=== PATIENT | female | born 1995 | race Caucasian/White ===

== ENCOUNTER 2022-08-27 01:52 | Emergency (ER) | payer BC, SELFPAY ==
[2022-08-27 02:12] VITALS: BP 115/72; PULSE 108; RESP 18; TEMP 37.4; O2SAT 97; BMI 29.0
--- OUTSIDE RECORDS SUMMARY | 2022-08-27 03:11 | XMS_ITS | Encounter Summary ---
:1995 Author Organization [facility] Address [address] [place] [address] Care Team Providers Name Role Phone Unavailable Primary Care Provider Unavailable Encounter Details Date Type Department Care Team Description 03/10/2016 Hospital Encounter HX [facility] Kyle Munroe M.D. [address] [place] [address] (Wo rk) Social History Tobacco Use Types Packs/Day Years Used Date Smoking Tobacco: Never Assessed Sex Assigned at Date Recorded Not on file documented as of this encounter Plan of Treatment Not on filedocumented as of this encounter Visit Diagnoses Not on filedocumented in this encounter
--- OUTSIDE RECORDS SUMMARY | 2022-08-27 03:11 | XMS_ITS | Encounter Summary ---
:1995 Author Organization [facility] Address [address] [place] [address] Care Team Providers Name Role Phone Unavailable Primary Care Provider Unavailable Encounter Details Date Type Department Care Team Description 03/20/2016 Hospital Encounter HX [facility] OCCUP MED Kyle Munroe M.D. [address] [place] [address] (Wo rk) Social History Tobacco Use Types Packs/Day Years Used Date Smoking Tobacco: Never Assessed Sex Assigned at Date Recorded Not on file documented as of this encounter Miscellaneous Notes Miscellaneous - Dora Loomis, CMaximilianoMMaximilianoAMaximiliano - 03/20/2016 8:30 AM CDT PPD Screen PPD Screen Entered On: 03/20/2016 8:31 CDT Performed On: 03/20/2016 8:30 CDT by DORA LOOMIS [facility] PPD Screening Bloody Sputum : No Fatigue : No Fever : No Loss of Appetite : No Night Sweats : No Persistent Cough Greater Than 3 Weeks : No Weight Loss : No DORA LOOMIS [facility] - 03/20/2016 8:30 CDT TB Symptoms Grid Alcohol and Drug Use : No Employee of Institutional Living Environment : No Health Care Employee : Yes History of Exposure to TB : No History of Positive Chest X-Ray for TB : No History of Positive TB Skin Test : No Homeless : No Known Immunosuppression : No Recent Immigrant : No Resident of Institutional Living Environment : No DORA LOOMIS [facility] - 03/20/2016 8:30 CDT PPD Screening Grid Severe reaction to previous TST (necrosis, blistering, anaphylactic shock, or ulcerations) : No Smallpox vaccine within last 4 - 6 weeks : No Yellow Fever vaccine in last 4 - 6 weeks : No Varicella vaccine within last 4 - 6 weeks : No Measles vaccine within last 4 - 6 weeks : No Any live virus vaccine within last 4 - 6 weeks : No DORA LOOMIS [facility] - 03/20/2016 8:30 CDT Source: [facility] [employer] Document Id: [id number] CDT!28 documented in this encounter Plan of Treatment Not on filedocumented as of this encounter Visit Diagnoses Not on filedocumented in this encounter
--- OUTSIDE RECORDS SUMMARY | 2022-08-27 03:11 | XMS_ITS | Encounter Summary ---
:1995 Author Organization [facility] Address [address] [place] [address] Care Team Providers Name Role Phone Unavailable Primary Care Provider Unavailable Encounter Details Date Type Department Care Team Description 08/24/2021 Admin Visit Department of Family Medicine, [address] [address] [facility] [phone] Social History Tobacco Use Types Packs/Day Years Used Date Smoking Tobacco: Never Assessed Sex Assigned at Date Recorded Not on file documented as of this encounter Plan of Treatment Not on filedocumented as of this encounter Visit Diagnoses Not on filedocumented in this encounter Additional Health Concerns Infection Onset Date Last Indicated Resolved Time COVID19 Pending 08/24/2021 08/24/2021 08/25/2021 10:56 AM COMMUNICATIONS ENGINEERING TECHNICIAN documented as of this encounter
--- OUTSIDE RECORDS SUMMARY | 2022-08-27 03:11 | XMS_ITS | Clinical Summary ---
:1995 Author Organization [facility] Address [address] [place] [address] Care Team Providers Name Role Phone Unavailable Primary Care Provider Unavailable Source Comments Patient records contain information from all sites at [facility]. For routine questions regarding patient records, call [phone] during business hours, M-F 8:00 AM - 5:00 PM Central Time. Record requests for emergency care only can be directed to [phone] at any time.[facility] Immunizations Name Administration Dates Next Due SARS-COV-2 (COVID-19) - MODERNA 11/18/2020 Social History Tobacco Use Types Packs/Day Years Used Date Smoking Tobacco: Never Assessed Sex Assigned at Date Recorded Not on file Plan of Treatment Health Maintenance Due Date Last Done Comments Cervical Cancer Screening 1995 Chlamydia and Gonorrhea 1995 Screening HIV Screening 1995 Hepatitis B Vaccines (1 of 1997 3 - 3-dose series) Hepatitis C Screening 1995 Depression Screening 10/04/2021 (Annual PHQ-2) COVID-19 Vaccine (4 - 10/29/2021 09/03/2021, 12/19/2020, Booster for Moderna series) 11/18/2020 Influenza Vaccine (#1) 2022 06/18/2021 DTaP,Tdap,and Td Vaccines 06/02/2028 06/02/2018, 06/06/2009 , (8 - Td or Tdap) 05/08/2003, Additional history exists HPV Vaccines Completed 10/25/2012, 07/07/2012, 04/22/2012 Pneumococcal vaccine (0-64 Aged Out No lo nger eligible years) based on patient 's age to complete this topic
--- OUTSIDE RECORDS SUMMARY | 2022-08-27 03:11 | XMS_ITS | Encounter Summary ---
:1995 Author Organization [facility] Address [address] [place] [address] Care Team Providers Name Role Phone Unavailable Primary Care Provider Unavailable Reason for Visit Reason Onset Date Comments Testing For Upper Respiratory Virus Symptoms 08/24/2021 Encounter Details Date Type Department Care Team Description 08/24/2021 External Outreach Department of [facility] Memo Araujo Contact With And Medicine, [facility] Michelle Garcia (Suspected) Exposure Building, in [address] To COVID-19 (Primary [place], [place] Dx) [address] [facility] [address] [place], [place] [phone] [address] (Work) [phone] Social History Tobacco Use Types Packs/Day Years Used Date Smoking Tobacco: Never Assessed Sex Assigned at Date Recorded Not on file documented as of this encounter Progress Notes Shazia Maravilla R.N. - 08/24/2021 11:45 AM CST Encounter created for symptomatic infectious disease screening with possible COVID, Influenza, RSV, and/or Group A Strep testing. IER ASSOCIATE documented in this encounter Miscellaneous Notes Result Encounter Note - Felipa Johnson R.N. - 08/25/2021 11:05 AM CARRIER ASSOCIATE The patient will be contacted if they are eligible for Monoclonal Antibody Infusion (MASS 1 or greater) and/or Remote Patient Monitoring (MASS 3 or greater). The [place] Covid Care Team (CCT) sends general guidance about COVID-19 to all patients by letter or portal, except when a patient is hospitalized or resides in a care home. [facility] will call all adult patients at highest risk for severe complications of COVID-19 (MASS 3 or greater), those without an online services account, and those who require an helpdesk administrator. Any patient with a MASS score 1 or greater or a COVID-19 score 1 or greater may be at higher risk ofsevere disease. These patients will follow up directly with primary care. The primary care team willdecide if the patient needs a phone call or a follow up portal message to assess symptom severity, provide individualized guidance on symptom monitoring or symptom management, or to reinforce when to se ek care. [facility] encourages patients to follow up with their PCP with questions, worsening symptoms, or for symptom management. For questions, contact the [place] Covid Care Team ([facility]): Pager: [phone] In basket: P RST/[facility] COVID-19 POSITIVE Covid Care e-consult Components of the Monoclonal Antibody Selection Score (MASS) Compromised Immune System/Transplant = 4 points Chronic Kidney Disease on Dialysis = 4 points Age greater than or equal to 55 and chronic pulmonary disease = 3 points Age greater than or equal to 65 = 2 points Age greater than or equal to = 2 points Diabetes = 2 points Age greater than or equal to 55 AND cardiovascular disease = 2 points Age greater than or equal to 55 and hypertension = 1 point NOTE: At the time of testing, patients are instructed to obtain the result by calling the [employer] result line or by checking the online services account. IER ASSOCIATE documented in this encounter Plan of Treatment Not on filedocumented as of this encounter Procedures Procedure Name Priority Date/Time Associated Diagnosis Comme nts SARS CORONAVIRUS-2 Routine 08/24/2021 2:14 PM Contact With And Results for this RNA, V CARRIER ASSOCIATE (Suspected) Exposure procedu re are in To COVID-19 the results section. documented in this encounter Results (ABNORMAL) SARS Coronavirus-2 RNA, V Symptomatic (08/24/2021 2:14 PM CARRIER ASSOCIATE) [facility] Method Time Signature SARS-CoV-2 Swab, 08/25/2021 MKTO Specimen Nasopharynx 10:55 AM Source CARRIER ASSOCIATE SARS CoV-2 Detected (A) Undetected 08/25/2021 PIETER RNA, TMA 10:55 AM CARRIER ASSOCIATE Comment: SARS-CoV-2 RNA present. ----ADDITIONAL INFORMATION---- This molecular amplification test was pe rformed using the Aptima SARS-CoV-2 assay ([employer] on the [employer]s tem under emergency use authorization (EUA) by the U.S. Food and Drug Administ deena. Fact sheets for this EUA assay can be fo und at the following links: For Healthcare Providers: https://www.fd a.gov/media/444044/download For Patients: https://www.fda.gov/media/ 489778/download Specimen Anatomical Collection Method Collection Time Receive d Time (Source) Location / / Volume Laterality Varies 08/24/2021 2:14 PM (Nasopharynx) CARRIER ASSOCIATE 10:36 PM CARRIER ASSOCIATE Memo Araujo D.O. LAB MICROBIOLOGY - GENERAL O RICKY Performing Organization Address City/State/[facility] Phon e Number [facility]- [address] [place] [address] [place] [address] System [address] documented in this encounter Visit Diagnoses Diagnosis Contact With And (Suspected) Exposure To COVID-19 - Primary documented in this encounter Additional Health Concerns Infection Onset Date Last Indicated Resolved Time COVID19 Pending 08/24/2021 08/24/2021 08/25/2021 10:56 AM CARRIER ASSOCIATE documented as of this encounter
[2022-08-27 03:40] LABS: SARS PCR* Negative SARS-CoV-2 (Negative)
[2022-08-27 03:55] LABS: PCR FLU A POSITIVE PCR FLU A (Negative); PCR FLU B Negative PCR FLU B (Negative); PCR RSV Negative PCR RSV (Negative)
[2022-08-27] MEDS: OSELTAMIVIR PHOSPHATE 75 MG CAPSULE PO (04:40)
--- NOTE | 2022-08-27 19:25 | ED.GENADULT ---
HPI - General Adult General Chief complaint: Cough Stated complaint: covid, cough Time Seen by Provider: 08/27/22 02:17 History of Present Illness HPI narrative: 26-year-old young woman presenting to the emergency department with her elderly with concern of chills headache sore throat. In home test apparently tested positive for COVID. This is 2nd day of symptoms. Is requesting a work note verifying COVID status for work. Works at [employer]? No apparent rash. No particular exposures other than her also has similar symptoms. No vomiting. Not complaining of nausea. Is generally quite healthy without renal problems. Takes no medications other than I believe contraception. Related Data Previous Rx's Medication Instructions Recorded nirmatrelvir 300 mg (150 mg See Rx Instructions PO .COMPLEX 08/27/22 x2)-ritonavir 100 mg tablet,dose #30 ea pack(EUA) (Paxlovid) Allergies Allergy/AdvReac Type Severity Reaction Status Date / Time amoxicillin Allergy Hives Verified 08/27/22 02:16 control patch AdvReac Rash Uncoded 08/27/22 02:16 Review of Systems Status of ROS: Reports: 6 or more systems reviewed and unremarkable except as noted in History and below PFSH PFSH Social History Smoking Status: Never smoker How often do you have a drink containing alcohol: monthly or less AUDIT-C Alcohol total score: 1 Non-prescribed substance use: denies use Exam Narrative: Exam Narrative: Generally well. NAD. Sounds a little congested. Face little flushed. No facial swelling or tenderness apparent Oropharynx is moist Lungs are clear Cardiovascular with elevated rate no MR G. Skin is rather warm, dry. Const: Vital Signs, click to edit/add: Vital Signs - 24 hr 08/27/22 02:12 Temperature 99.3 F Pulse Rate [Pulse Oximeter] 108 H Respiratory Rate 18 Blood Pressure [Le ft Upper Arm] 115/72 Pulse Oximetry 97 Oxygen Delivery Me thod Room Air Documenting provider has reviewed patient's vital signs: yes Course Vital Signs Vital signs: Initial Vital Signs Temperature 99.3 F 08/27/22 02:12 Temperature Source Temporal Artery Scan 08/27/22 02:12 Pulse Rate 108 H 08/27/22 02:12 Respiratory Rate 18 08/27/22 02:12 Blood Pressure 115/72 08/27/22 02:12 Blood Pressure Mean 86 08/27/22 02:12 Blood Pressure Position Sitting 08/27/22 02:12 Pulse Oximetry 97 08/27/22 02:12 Oxygen Delivery Method 08/27/22 02:12 Vital Signs Temperature 99.3 F 08/27/22 02:12 Pulse Rate 108 H 08/27/22 02:12 Respiratory Rate 18 08/27/22 02:12 Blood Pressure 115/72 08/27/22 02:12 Pulse Oximetry 97 08/27/22 02:12 Oxygen Delivery Method 08/27/22 02:12 Temperature 99.3 F 08/27/22 02:12 Pulse Rate 108 H 08/27/22 02:12 Respiratory Rate 18 08/27/22 02:12 Blood Pressure 115/72 08/27/22 02:12 Pulse Oximetry 97 08/27/22 02:12 Oxygen Delivery Method 08/27/22 02:12 Medical Decision Making MDM Narrative Medical decision making narrative: Understanding self-reported positive COVID test and that she has no comorbidities, reviewed record and no evidence of any renal problems, she would like to receive treatment for COVID. I did initially prescribe Paxlovid however we tested as well during this visit and he was negative. Circling back around and screening for influenza A, he was positive. Christy subsequently tested positive for influenza A as well. She would like to receive Tamiflu. Medical Records Medical records reviewed: Yes I reviewed the patient's medical records Lab Data Lab results reviewed: Yes I reviewed the patient's lab results Labs: Lab Results 08/27/22 Range/Units 02:11 SARS-CoV-2 (PCR) Negative SARS-CoV-2 (Negative) Influenza Type A (PCR) POSITIVE PCR FLU A A (Negative) Influenza Type B (PCR) Negative PCR FLU B (Negative) RSV (PCR) Negative PCR RSV (Negative) Discharge Plan Discharge Clinical Impression: Influenza A Condition: Stable Additional Instructions: Our testing was negative for COVID but positive for influenza type A. Stay well-hydrated. Can take up to 800 mg of ibuprofen or up to 1000 mg of acetaminophen per dose. I would try to get you Tamiflu from [facility] but it looks like we're out. Will have to go to pharmacy. Do not take/fill the Paxlovid. Take your other Tamiflu at around 5:00 p.m. <del>Same</del> <del>goes</del> <del>for</del> <del>you,</del> <del>if</del> <del>you</del> <del>becoming</del> <del>more</del> <del>short</del> <del>of</del> <del>air,</del> <del>get</del> <del>an</del> <del>oxygen</del> <del>saturation</del> <del>monitor</del> <del>and</del> <del>return</del> <del>for</del> <del>oxygen</del> <del>saturations</del> <del>that</del> <del>are</del> <del>90%</del> <del>or</del> <del>less.</del> <del>Recommended</del> <del>quarantine</del> <del>for</del> <del>10</del> <del>days</del> <del>from</del> <del>onset</del> <del>of</del> <del>symptoms.</del> Prescriptions: New Paxlovid (EUA) 300 mg (150 mg x 2)-100 mg tablets,dose pack See Rx Instructions .ROUTE .COMPLEX Qty: 30 0RF Rx Instructions: take TWO 150 mg tablets of nirmatrelvir with ONE 100 mg tablet of ritonavir twice daily for 5 days Follow Up/Referrals: Deneen Barrientos MD [Primary Care Provider] - Stand Alone Forms: [facility] Info Instructions
== END 2022-08-27 05:03 | disposition home or self-care (01) ==
PROVIDERS: Emergency Provider Family Medicine; PCP Family Medicine
DX: J09.X2 Influenza due to identified novel influenza A virus with other respiratory manifestations (principal)
CPT/HCPCS: 87502; 87634; 87635; 96374; 99283; 99284; A9270; J2405; J7030

== ENCOUNTER 2022-08-27 17:50 | Outpatient (CLI) | payer BC, SELFPAY | END 2022-08-27 17:51 | disposition home or self-care (01) | LOC: AMB 09-18 05:02 | PROVIDERS: PCP Family Medicine; Visit Provider Family Medicine | DX: R53.1 Weakness (principal) | CPT/HCPCS: A0425; A0427 ==

== ENCOUNTER 2022-08-27 18:15 | Emergency (ER) | payer BC, SELFPAY ==
[2022-08-27] VITALS (17 sets, daily range): BP systolic 116–127; BP diastolic 71–81; PULSE 67–111; RESP 18; TEMP 37.9; O2SAT 95–100; BMI 30.9
--- NOTE | 2022-08-27 18:45 | ED.NURSE ---
Pt visitor called for assistance. Master At Arms entered room. Pt visitor stated pt put her hand up to her head, straightened her legs, and passed out. Pt vitals stable and unchanged. BP repeated, still stable. Pt responsive to voice. Pt visitor reassured by selling underwriter that pt was vitally stable.
--- NOTE | 2022-08-27 19:00 | ED.NURSE ---
Pt's visitor called stating pt threw up in the bed. Music Minister arrived in the room, pt visitor stating pt threw up on the bed and was laying on her side covering the area she had allegedly vomited. Pt able to follow verbal directions to turn and move to expose the area where she said she had vomited. No evidence of any emesis. Pt provided with emesis bag.
--- OUTSIDE RECORDS SUMMARY | 2022-08-27 19:11 | XMS_ITS | Clinical Summary ---
:1995 Author Organization [facility] Address [address] [place] [address] Care Team Providers Name Role Phone Unavailable Primary Care Provider Unavailable Source Comments Patient records contain information from all sites at [facility]. For routine questions regarding patient records, call [phone] during business hours, M-F 8:00 AM - 5:00 PM Central Time. Record requests for emergency care only can be directed to [phone] at any time.[facility] Immunizations Name Administration Dates Next Due SARS-COV-2 [...]
--- OUTSIDE RECORDS SUMMARY | 2022-08-27 19:11 | XMS_ITS | Encounter Summary ---
:1995 Author Organization [facility] Address [address] [place] [address] Care Team Providers Name Role Phone Unavailable Primary Care Provider Unavailable Encounter Details Date Type Department Care Team Description 08/24/2021 Admin Visit Department of Family Medicine, [address] [address] [facility] [phone] Social History Tobacco Use Types Packs/Day Years Used Date Smoking Tobacco: Never Assessed Sex Assigned at Date Recorded Not on file documented as of this encounter Plan of Treatment Not on filedocumented as of this encounter Visit Diagnoses Not on filedocumented in this encounter Additional Health Concerns Infection Onset Date Last Indicated Resolved Time COVID19 Pending 08/24/2021 08/24/2021 08/25/2021 10:56 AM GUIDEMAN documented as of this encounter
--- OUTSIDE RECORDS SUMMARY | 2022-08-27 19:11 | XMS_ITS | Encounter Summary ---
:1995 Author Organization [facility] Address [address] [place] [address] Care Team Providers Name Role Phone Unavailable Primary Care Provider Unavailable Encounter Details Date Type Department Care Team Description 03/10/2016 Hospital Encounter HX [facility] FBCR OCCUP MED Kyle Munroe M.D. [address] [place] [address] (Wo rk) Social History Tobacco Use Types Packs/Day Years Used Date Smoking Tobacco: Never Assessed Sex Assigned at Date Recorded Not on file documented as of this encounter Plan of Treatment Not on filedocumented as of this encounter Visit Diagnoses Not on filedocumented in this encounter
--- OUTSIDE RECORDS SUMMARY | 2022-08-27 19:11 | XMS_ITS | Encounter Summary ---
:1995 Author Organization [facility] Address [address] [place] [address] Care Team Providers Name Role Phone Unavailable Primary Care Provider Unavailable Reason for Visit Reason Onset Date Comments Testing For Upper Respiratory Virus Symptoms 08/24/2021 Encounter Details Date Type Department Care Team Description 08/24/2021 External Outreach Department of [facility] Memo Araujo Contact With And Medicine, [facility] Michelle Garcia (Suspected) Exposure Building, in [address] To COVID-19 (Primary [place], [place] Dx) [address] [facility] [address] [place], [place] [phone] [address] (Work) [phone] Social History Tobacco Use Types Packs/Day Years Used Date Smoking Tobacco: Never Assessed Sex Assigned at Date Recorded Not on file documented as of this encounter Progress Notes Shazia Maravilla R.N. - 08/24/2021 11:45 AM CST Encounter created for symptomatic infectious disease screening with possible COVID, Influenza, RSV, and/or Group A Strep testing. COURT JUSTICE documented in this encounter Miscellaneous Notes Result Encounter Note - Felipa Johnson R.N. - 08/25/2021 11:[address] JUSTICE The patient will be contacted if they are eligible for Monoclonal Antibody Infusion (MASS 1 or greater) and/or Remote Patient Monitoring (MASS 3 or greater). The [place] Covid Care Team (CCT) sends general guidance about COVID-19 to all patients by letter or portal, except when a patient is hospitalized or resides in a mcfp. [facility] will call all adult patients at highest risk for severe complications of COVID-19 (MASS 3 or greater), those without an online services account, and those who require an senior program manager. Any patient with a MASS score 1 [...] for symptom management. For questions, contact the [place] Covid Care Team ([facility]): Pager: [phone] In basket: P RST/[facility] COVID-19 POSITIVE Covid [...] to obtain the result by calling the [employer] result line or by checking the online services account. COURT JUSTICE documented in this encounter Plan of Treatment Not on filedocumented as of this encounter Procedures Procedure Name Priority Date/Time Associated Diagnosis Comme nts SARS CORONAVIRUS-2 Routine 08/24/2021 2:14 PM Contact With And Results for this RNA, V HIGH COURT JUSTICE (Suspected) Exposure procedu re are in To COVID-19 the results section. documented in this encounter Results (ABNORMAL) SARS Coronavirus-2 RNA, V Symptomatic (08/24/2021 2:[address] JUSTICE) [facility] Method Time Signature SARS-CoV-2 Swab, 08/25/2021 MKTO Specimen Nasopharynx 10:[address] JUSTICE SARS CoV-2 Detected (A) Undetected 08/25/2021 PIETER RNA, TMA 10:[address] JUSTICE Comment: SARS-CoV-2 RNA present. ----ADDITIONAL INFORMATION---- This molecular amplification test was pe rformed using the Aptima SARS-CoV-2 assay ([employer] on the [employer] tem under emergency use authorization (EUA) by the U.S. Food and Drug Administ deena. Fact sheets for this EUA assay can be fo und at the following links: For Healthcare Providers: https://www.fd a.gov/media/388984/download For Patients: https://www.fda.gov/media/ 180591/download Specimen Anatomical Collection Method Collection Time Receive d Time (Source) Location / / Volume Laterality Varies 08/24/2021 2:14 PM (Nasopharynx) HIGH COURT JUSTICE 10:[address] JUSTICE Memo Araujo D.O. LAB MICROBIOLOGY - GENERAL O RICKY Performing Organization Address City/State/[facility] Phon e Number [facility]- [address] [place] [address] [place] [address] System [address] documented in this encounter Visit Diagnoses Diagnosis Contact With And (Suspected) Exposure To COVID-19 - Primary documented in this encounter Additional Health Concerns Infection Onset Date Last Indicated Resolved Time COVID19 Pending 08/24/2021 08/24/2021 08/25/2021 10:[address] JUSTICE documented as of this encounter
--- OUTSIDE RECORDS SUMMARY | 2022-08-27 19:11 | XMS_ITS | Encounter Summary ---
:1995 Author Organization [facility] Address [address] [place] [address] Care Team Providers Name Role Phone Unavailable Primary Care Provider Unavailable Encounter Details Date Type Department Care Team Description 03/20/2016 Hospital Encounter HX [facility] FBCR OCCUP MED Kyle Munroe M.D. [address] [place] [address] (Wo rk) Social History Tobacco Use Types Packs/Day Years Used Date Smoking Tobacco: Never Assessed Sex Assigned at Date Recorded Not on file documented as of this encounter Miscellaneous Notes Miscellaneous - Dora Loomis, CMaximilianoMMaximilianoAMaximiliano - 03/20/2016 8:30 AM CDT PPD Screen PPD Screen Entered On: 03/20/2016 8:31 CDT Performed On: 03/20/2016 8:30 CDT by DORA LOOMIS [facility] PPD Screening Bloody Sputum : No Fatigue : No Fever : No Loss of Appetite : No Night Sweats : No Persistent Cough Greater Than 3 Weeks : No Weight Loss : No DORA LOOMIS [facility] - 03/20/2016 8:30 CDT TB [...] Institutional Living Environment : No DORA LOOMIS [facility] - 03/20/2016 8:30 CDT PPD [...] - 6 weeks : No DORA LOOMIS [facility] - 03/20/2016 8:30 CDT Source: [facility] [employer] Document Id: [id number] CDT!28 documented in this encounter Plan of Treatment Not on filedocumented as of this encounter Visit Diagnoses Not on filedocumented in this encounter
--- NOTE | 2022-08-27 19:19 | ED.GENADULT ---
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 Was initiated on Tamiflu and subsequently has been vomiting. She says she is just too weak to even walk. Requested ambulance transport to the emergency department. No complaint of chest pain or shortness of breath. Just feeling really miserable. Says she can not talk either. Related Data Previous Rx's Medication Instructions Recorded nirmatrelvir 300 mg (150 mg See Rx Instructions PO .COMPLEX 08/27/22 x2)-ritonavir 100 mg tablet,dose #30 ea pack(EUA) (Paxlovid) Allergies Allergy/AdvReac Type Severity Reaction Status Date / Time amoxicillin Allergy Hives Verified 08/27/22 02:16 control patch AdvReac Rash Uncoded 08/27/22 02:16 Review of Systems Status of ROS: Reports: 6 or more systems reviewed and unremarkable except as noted in History and below PFSH PFS Social History Smoking Status: Never smoker How often do you have a drink containing alcohol: monthly or less AUDIT-C Alcohol total score: 1 Non-prescribed substance use: denies use Exam Narrative: Exam Narrative: Arrives with her . Looks quite disheveled curled up on her right side. Looks like she feels very uncomfortable. Ice to be prompted to bring her head out of the bed. Is able to speak but sounds tired worn out. Cranial nerves 2-12 look to be intact. She is able to move all extremities with good strength. But seems to struggle to sit up. Breathing easily and lungs are clear. Cardiovascular with regular rate and rhythm. Oropharynx is a little sticky Abdomen is soft nontender Const: Vital Signs, click to edit/add: Vital Signs - 24 hr 08/27/22 18:22 08/27/22 19:00 08/27/22 19:02 Temperature 100.3 F H Pulse Rate 98 77 Pulse Rate [Right Pulse Oximeter] 83 Respiratory Rate 18 Blood Pressure 125/80 Blood Pressure [Ri ght Upper Arm] 127/81 Pulse Oximetry 96 98 95 Oxygen Delivery Me thod Room Air 08/27/22 19:03 08/27/22 19:35 08/27/22 20:00 Temperature Pulse Rate 111 H 74 105 H Pulse Rate [Right Pulse Oximeter] Respiratory Rate Blood Pressure Blood Pressure [Ri ght Upper Arm] Pulse Oximetry 95 95 100 Oxygen Delivery Me thod 08/27/22 20:02 08/27/22 20:30 08/27/22 21:00 Temperature Pulse Rate 89 91 67 Pulse Rate [Right Pulse Oximeter] Respiratory Rate Blood Pressure 116/74 Blood Pressure [Ri ght Upper Arm] Pulse Oximetry 98 95 97 Oxygen Delivery Me thod 08/27/22 21:02 08/27/22 21:03 08/27/22 21:30 Temperature Pulse Rate 87 68 71 Pulse Rate [Right Pulse Oximeter] Respiratory Rate Blood Pressure 117/75 Blood Pressure [Ri ght Upper Arm] Pulse Oximetry 96 96 97 Oxygen Delivery Me thod 08/27/22 22:00 08/27/22 22:02 08/27/22 22:30 Temperature Pulse Rate 89 75 70 Pulse Rate [Right Pulse Oximeter] Respiratory Rate Blood Pressure 121/71 Blood Pressure [Ri ght Upper Arm] Pulse Oximetry 98 97 95 Oxygen Delivery Me thod 08/27/22 23:00 08/27/22 23:02 Temperature Pulse Rate 76 74 Pulse Rate [Right Pulse Oximeter] Respiratory Rate Blood Pressure 118/71 Blood Pressure [Ri ght Upper Arm] Pulse Oximetry 96 97 Oxygen Delivery Me thod Documenting provider has reviewed patient's vital signs: yes Course Vital Signs Vital signs: Initial Vital Signs Temperature 100.3 F H 08/27/22 18:22 Temperature Source Temporal Artery Scan 08/27/22 18:22 Pulse Rate 83 08/27/22 18:22 Respiratory Rate 18 08/27/22 18:22 Blood Pressure 127/81 08/27/22 18:22 Blood Pressure Mean 96 08/27/22 18:22 Blood Pressure Position Sitting 08/27/22 18:22 Pulse Oximetry 96 08/27/22 18:22 Oxygen Delivery Method 08/27/22 18:22 Vital Signs Temperature 100.3 F H 08/27/22 18:22 Pulse Rate 83 08/27/22 18:22 Respiratory Rate 18 08/27/22 18:22 Blood Pressure 127/81 08/27/22 18:22 Pulse Oximetry 96 08/27/22 18:22 Oxygen Delivery Method 08/27/22 18:22 Temperature 100.3 F H 08/27/22 18:22 Pulse Rate 74 08/27/22 23:02 Respiratory Rate 18 08/27/22 18:22 Blood Pressure 118/71 08/27/22 23:02 Pulse Oximetry 97 08/27/22 23:02 Oxygen Delivery Method 08/27/22 18:22 Medical Decision Making MDM Narrative Medical decision making narrative: I discussed options and care. I would suspect just more extreme reaction to Tamiflu. At this point does not appear to have any respiratory compromise from influenza. She would like to proceed with IV fluids. Will be also ordering Zofran and re-evaluate. After hydration and Zofran is feeling much improved. Still seems rather fatigued. But did did report feeling ?100% better? and was requesting departure. Discharge Plan Discharge Clinical Impression: Medication reaction, Altered mental status, Vomiting Patient Disposition: Home w/ Parent or Adult Condition: Improved Additional Instructions: Focus on hydration. Slow advance of diet over the next 24-36 hours. Soup broth and diluted juices. Rice. [place]. I think it is possible that Tamiflu is been causing your vomiting. I would discontinue that. Zofran from [facility]. Prescriptions: No Action Paxlovid (EUA) 300 mg (150 mg x 2)-100 mg tablets,dose pack See Rx Instructions .ROUTE .COMPLEX Qty: 30 0RF Rx Instructions: take TWO 150 mg tablets of nirmatrelvir with ONE 100 mg tablet of ritonavir twice daily for 5 days Follow Up/Referrals: Deneen Barrientos MD [Primary Care Provider] - Stand Alone [facility]
[2022-08-27] MEDS: 0.9 % SODIUM CHLORIDE 1000 ml 1,000 ML IV (19:30)
[2022-08-27] MEDS: ONDANSETRON 2 MG/ML inj 4 MG IVP (19:30)
== END 2022-08-27 23:35 | disposition home or self-care (01) ==
PROVIDERS: Emergency Provider Family Medicine; PCP Family Medicine
DX: R11.10 Vomiting, unspecified (principal); R41.82 Altered mental status, unspecified; T37.5X5A Adverse effect of antiviral drugs, initial encounter; J10.1 Influenza due to other identified influenza virus with other respiratory manifestations
CPT/HCPCS: 99284; J2405; J7030

== ENCOUNTER 2022-08-28 15:58 | Inpatient (IN) | payer BC, SELFPAY ==
[2022-08-28 16:53] VITALS: BP 125/83; PULSE 71; RESP 22; TEMP 38.8; O2SAT 99; BMI 27.3
--- OUTSIDE RECORDS SUMMARY | 2022-08-28 17:24 | XMS_ITS | Encounter Summary ---
:1995 Author Organization [facility] Address [address] [place] [address] Care Team Providers Name Role Phone Unavailable Primary Care Provider Unavailable Reason for Visit Reason Onset Date Comments Testing For Upper Respiratory Virus Symptoms 08/24/2021 Encounter Details Date Type Department Care Team Description 08/24/2021 External Outreach Department of [facility] Memo Araujo Contact With And Medicine, [facility] Michelle Garcia (Suspected) Exposure Building, in [address] COVID-19 (Primary [place], [place] Dx) [address] [facility] [address] [place], [place] [phone] [address] (Work) [phone] Social History Tobacco Use Types Packs/Day Years Used Date Smoking Tobacco: Never Assessed Sex Assigned at Date Recorded Not on file documented as of this encounter Progress Notes Shazia Maravilla R.N. - 08/24/2021 11:45 AM CST Encounter created for symptomatic infectious disease screening with possible COVID, Influenza, RSV, and/or Group A Strep testing. TREATMENT OFFSIDER documented in this encounter Miscellaneous Notes Result Encounter Note - Felipa Johnson R.N. - 08/25/2021 11:05 AM WELL TREATMENT OFFSIDER The patient will be contacted if they are eligible for Monoclonal Antibody Infusion (MASS 1 or greater) and/or Remote Patient Monitoring (MASS 3 or greater). The [facility] Team (CCT) sends general guidance about COVID-19 to all patients by letter or portal, except when a patient is hospitalized or resides in a senior living. [facility] will call all adult patients at highest risk for severe complications of COVID-19 (MASS 3 or greater), those without an online services account, and those who require an director of enrollment. Any patient with a MASS score 1 [...] for symptom management. For questions, contact the [facility] Team ([facility]): Pager: [phone] In basket: P RST/[facility] COVID-19 POSITIVE Covid [...] to obtain the result by calling the [employer] result line or by checking the online services account. TREATMENT OFFSIDER documented in this encounter Plan of Treatment Not on filedocumented as of this encounter Procedures Procedure Name Priority Date/Time Associated Diagnosis Comme nts SARS CORONAVIRUS-2 Routine 08/24/2021 2:14 PM Contact With And Results for this RNA, V WELL TREATMENT OFFSIDER (Suspected) Exposure procedu re are in To COVID-19 the results section. documented in this encounter Results (ABNORMAL) SARS Coronavirus-2 RNA, V Symptomatic (08/24/2021 2:14 PM WELL TREATMENT OFFSIDER) [facility] Method Time Signature SARS-CoV-2 Swab, 08/25/2021 MKTO Specimen Nasopharynx 10:55 AM Source WELL TREATMENT OFFSIDER SARS CoV-2 Detected (A) Undetected 08/25/2021 PIETER RNA, TMA 10:55 AM WELL TREATMENT OFFSIDER Comment: SARS-CoV-2 RNA present. ----ADDITIONAL INFORMATION---- This molecular amplification test was pe rformed using the Aptima SARS-CoV-2 assay ([employer] on the [employer] tem under emergency use authorization (EUA) by the U.S. Food and Drug Administ deena. Fact sheets for this EUA assay can be fo und at the following links: For Healthcare Providers: https://www.fd a.gov/media/913127/download For Patients: https://www.fda.gov/media/ 071507/download Specimen Anatomical Collection Method Collection Time Receive d Time (Source) Location / / Volume Laterality Varies 08/24/2021 2:14 PM (Nasopharynx) WELL TREATMENT OFFSIDER 10:36 PM WELL TREATMENT OFFSIDER Memo Araujo D.O. LAB MICROBIOLOGY - GENERAL O RICKY Performing Organization Address City/State/[facility] Phon e Number [facility]- [address] [place] [address] [place] [address] System [address] documented in this encounter Visit Diagnoses Diagnosis Contact With And (Suspected) Exposure To COVID-19 - Primary documented in this encounter Additional Health Concerns Infection Onset Date Last Indicated Resolved Time COVID19 Pending 08/24/2021 08/24/2021 08/25/2021 10:56 AM WELL TREATMENT OFFSIDER documented as of this encounter
--- OUTSIDE RECORDS SUMMARY | 2022-08-28 17:24 | XMS_ITS | Clinical Summary ---
:1995 Author Organization [facility] Address [address] [place] [address] Care Team Providers Name Role Phone Unavailable Primary Care Provider Unavailable Source Comments Patient records contain information from all sites at [facility]. For routine questions regarding patient records, call [phone] during business hours, M-F 8:00 AM - 5:00 PM Central Time. Record requests for emergency care only can be directed to [phone] at any time.[facility] Immunizations Name Administration Dates Next Due [...]
--- OUTSIDE RECORDS SUMMARY | 2022-08-28 17:24 | XMS_ITS | Encounter Summary ---
:1995 Author Organization [facility] Address [address] [place] [address] Care Team Providers Name Role Phone Unavailable Primary Care Provider Unavailable Encounter Details Date Type Department Care Team Description 03/20/2016 Hospital Encounter HX [facility] OCCUP MED Kyle Munroe M.D. [address] [place] [address] (Wo rk) Social History Tobacco Use Types Packs/Day Years Used Date Smoking Tobacco: Never Assessed Sex Assigned at Date Recorded Not on file documented as of this encounter Miscellaneous Notes Miscellaneous - Dora Loomis, CMaximilianoMMaximilianoAMaximiliano - 03/20/2016 8:30 AM CDT PPD Screen PPD Screen Entered On: 03/20/2016 8:31 CDT Performed On: 03/20/2016 8:30 CDT by [facility] LO[facility] PPD Screening Bloody Sputum : No Fatigue : No Fever : No Loss of Appetite : No Night Sweats : No Persistent Cough Greater Than 3 Weeks : No Weight Loss : No [facility] LO[facility] - 03/20/2016 8:30 CDT TB Symptoms Grid [...] Institutional Living Environment : No [facility] LO[facility] - 03/20/2016 8:30 CDT PPD Screening Grid [...] - 6 weeks : No [facility] LOOM[facility] - 03/20/2016 8:30 CDT Source: [facility] [employer] Document Id: [id number] documented in this encounter Plan of Treatment Not on filedocumented as of this encounter Visit Diagnoses Not on filedocumented in this encounter
--- OUTSIDE RECORDS SUMMARY | 2022-08-28 17:24 | XMS_ITS | Encounter Summary ---
:[address] [facility] Address [address] [place] [address] Care Team Providers Name Role Phone Unavailable Primary Care Provider Unavailable Encounter Details Date Type Department Care Team Description 03/10/2016 Hospital Encounter HX [facility] OCCUP MED Kyle Munroe M.D. [address] [place] [address] (Wo rk) Social History Tobacco Use Types Packs/Day Years Used Date Smoking Tobacco: Never Assessed Sex Assigned at Date Recorded Not on file documented as of this encounter Plan of Treatment Not on filedocumented as of this encounter Visit Diagnoses Not on filedocumented in this encounter
--- OUTSIDE RECORDS SUMMARY | 2022-08-28 17:24 | XMS_ITS | Encounter Summary ---
:1995 Author Organization [facility] Address [address] [place] [address] Care Team Providers Name Role Phone Unavailable Primary Care Provider Unavailable Encounter Details Date Type Department Care Team Description 08/24/2021 Admin Visit Department of Family Medicine, [address] [address] [facility] [phone] Social History Tobacco Use Types Packs/Day Years Used Date Smoking Tobacco: Never Assessed Sex Assigned at Date Recorded Not on file documented as of this encounter Plan of Treatment Not on filedocumented as of this encounter Visit Diagnoses Not on filedocumented in this encounter Additional Health Concerns Infection Onset Date Last Indicated Resolved Time COVID19 Pending 08/24/2021 08/24/2021 08/25/2021 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
[2022-08-28] MEDS: ONDANSETRON 2 MG/ML inj 4 MG IVP (18:04)
[2022-08-28] MEDS: KETOROLAC 30 MG/ML inj IVP (18:04)
[2022-08-28] MEDS: 0.9 % SODIUM CHLORIDE 1000 ml 1,000 ML IV (18:04)
[2022-08-28 18:08] LABS: Lactate* 1.1 mmol/L (0.5-1.9)
[2022-08-28 18:10] LABS: Basophils Percent Auto 0.2 % (0.0-3.0); Hematocrit 44.3 % (33.0-51.0); Hemoglobin* 14.5 gm/dL (12.0-16.0); Immature Granulocytes Pct Auto 0.1 %; Lymphocytes Percent Auto 12.4 % (20-44); Mean Corpuscular HGB Conc 33 gm/dL (32-36); Mean Corpuscular Hemoglobin 27 pg (26-34); Mean Corpuscular Volume 82 fL (80-100); Monocytes Percent Auto 4.6 % (0.0-11.0); Neutrophils Percent Auto 82.7 % (42.0-72.0); Platelet Count* 387 K/uL (140-440); RDW Coefficient of Variation % 13.7 % (11.5-15.5); Red Blood Count 5.41 m/uL (4.00-5.20); White Blood Count* 11.84 K/uL (4.50-11.00)
[2022-08-28 18:13] LABS: Slide Review Reflex No
[2022-08-28 18:23] LABS: Chloride* 107 mmol/L (96-114); Potassium* 3.6 mmol/L (3.6-5.1); Sodium* 141 mmol/L (135-149)
[2022-08-28 18:26] LABS: Carbon Dioxide* 23 mmol/L (20-32); Creatinine* 0.8 mg/dL (0.5-1.5); Est. Creatinine Clearance* 113.32; Estimated Glomerular Filt Rate 105 ml/min
[2022-08-28 18:27] LABS: Blood Urea Nitrogen* 14 mg/dL (5-24); Calcium* 8.9 mg/dL (8.4-10.6); Glucose* 88 mg/dL (60-115)
[2022-08-28 18:29] LABS: C Reactive Protein* 0.8 mg/dL (0.5-1.0)
--- NOTE | 2022-08-28 18:30 | ED_ITS ---
HPI - Weakness General Date Seen: 08/28/22 Chief complaint: Weakness Stated complaint: Influenza+, Weak, Possible confusion Time Seen by Provider: 08/28/22 17:04 Source: patient Mode of arrival: ambulatory Limitations: no limitations History of Present Illness HPI Narrative: Patient is a 26-year-old female who has tested positive for influenza, brought in by her significant other for evaluation of fever, and mental status changes. She seems very weak and confused at times. They last gave her Tylenol approximately 10:00 a.m.. She has also been vomiting and vomited in waiting room. She was trialed on Tamiflu but the Tamiflu according to them was thought to be possibly contributing to her mental status changes. She denies any headache, any neck stiffness, she is eating less, and drink and really not all. She has had no incontinence of stool or urine. Denies any abdominal pain, rashes associated with this. She presents here with her , who does the majority of talking. She does seem photophobic in the room. MD Complaint: generalized weakness and lack of energy Onset (ago): day(s) Location: generalized Migration: none Relieving factors: none Exacerbating factors: none Associated symptoms: nausea/vomiting Related Data Home Medications Medication Instructions Recorded Confirmed No Known Home Medications 08/28/22 08/28/22 Allergies Allergy/AdvReac Type Severity Reaction Status Date / Time amoxicillin Allergy Hives Verified 08/27/22 02:16 control patch AdvReac Rash Uncoded 08/27/22 02:16 Review of Systems Status of ROS: Reports: 10 or more systems reviewed and unremarkable except as noted in History and below PFSH PFSH Social History Smoking Status: Never smoker How often do you have a drink containing alcohol: monthly or less AUDIT-C Alcohol total score: 1 Non-prescribed substance use: denies use Exam Narrative: Exam Narrative: I find her resting in room 7, she is laying on her right side, her 's with her, the room is dark, but she tolerates a lytes, with squinting her eyes. She response to my questions and follows commands, is able to sit up on her own, and does answer my questions appropriately. Her pupils are equal round reactive to light, there is no scleral icterus redness TMs are normal, oropharynx is little dry, but no lymphadenopathy in mouth opening normal, neck is supple, full range of motion with absence of meningismus is noted. Fundi appear normal bilaterally, cranial nerves 3-12 are normal, chest is clear, no signs of respiratory distress, heart sounds are normal, abdomen is soft, bowel sounds are normal. Extremities are all normal, normal cap refill, moves all extremities independently well, no posturing. Const: Vital Signs, click to edit/add: Vital Signs - 24 hr 08/28/22 16:53 Temperature 101.9 F H Pulse Rate [Left P ulse Oximeter] 71 Respiratory Rate 22 Blood Pressure [Le ft Upper Arm] 125/83 Pulse Oximetry 99 Oxygen Delivery Me thod Room Air Documenting provider has reviewed patient's vital signs: yes Course Reevaluation(s) Reevaluation #1: Patient's labs are reviewed, her procalcitonin, lactic acid, are normal, white count is slightly elevated, and she was dry on when I review her urinalysis. I will give her 2 L of fluid, she did vomit up once here, and I think she would benefit from staying overnight and IV fluids. I do not think there is an invasive bacterial infection given what I see, I think this is all part and pa rcel with influenza. Do not think she has meningitis nor do I think she has encephalitis. I spoke to the hospitalist and she agreed for admission. Time: 19:37 Vital Signs Vital signs: Initial Vital Signs Temperature 101.9 F H 08/28/22 16:53 Temperature Source Temporal Artery Scan 08/28/22 16:53 Pulse Rate 71 08/28/22 16:53 Pulse Rhythm 08/28/22 16:53 Respiratory Rate 22 08/28/22 16:53 Blood Pressure 125/83 08/28/22 16:53 Blood Pressure Mean 97 08/28/22 16:53 Blood Pressure Position Sitting 08/28/22 16:53 Pulse Oximetry 99 08/28/22 16:53 Oxygen Delivery Method 08/28/22 16:53 Vital Signs Temperature 101.9 F H 08/28/22 16:53 Pulse Rate 71 08/28/22 16:53 Respiratory Rate 22 08/28/22 16:53 Blood Pressure 125/83 08/28/22 16:53 Pulse Oximetry 99 08/28/22 16:53 Oxygen Delivery Method 08/28/22 16:53 Temperature 101.9 F H 08/28/22 16:53 Pulse Rate 71 08/28/22 16:53 Respiratory Rate 22 08/28/22 16:53 Blood Pressure 125/83 08/28/22 16:53 Pulse Oximetry 99 08/28/22 16:53 Oxygen Delivery Method 08/28/22 16:53 MDM - Weakness MDM Narrative Medical decision making narrative: s Life-threatening differential diagnosis is include meningitis, encephalitis, pneumonia, intra-abdominal infection, bacteremia, other differential diagnosis include but are not limited to viral upper respiratory tract infection, strep, urinary tract infection, skin infection, osteomyelitis, influenza, fungal infections, diskitis, epidural abscess, or fever of unknown origin. Medical Records Attestation: I reviewed the patient's medical records. Lab Data Attestation: I reviewed the patient's lab results. Labs: Lab Results 08/28/22 08/28/22 08/28/22 Range/Units 18:00 18:00 18:00 WBC 11.84 H (4.50-11.00) K/uL RBC 5.41 H (4.00-5.20) m/uL Hgb 14.5 (12.0-16.0) gm/dL Hct 44.3 (33.0-51.0) % MCV 82 (80-100) fL MCH 27 (26-34) pg MCHC 33 (32-36) gm/dL RDW Coeff of Joe 13.7 (11.5-15.5) % Plt Count 387 (140-440) K/uL Neut % (Auto) 82.7 H (42.0-72.0) % Lymph % (Auto) 12.4 L (20-44) % [place] % (Auto) 4.6 (0.0-11.0) % Eos % (Auto) 0.0 (0.0-7.0) % Baso % (Auto) 0.2 (0.0-3.0) % Neut # (Auto) 9.80 H (1.7-7.0) K/uL Lymph # (Auto) 1.50 (0.90-2.90) K/uL [place] # (Auto) 0.50 (0.00-0.90) K/UL Eos # (Auto) 0.00 (0.00-0.50) K/uL Baso # (Auto) 0.00 (0.00-0.30) K/uL Abs Immat Gran (auto) 0.00 (0.00-0.30) K/uL Imm/Tot Granulo (auto) 0.1 % Sodium 141 (135-149) mmol/L Potassium 3.6 (3.6-5.1) mmol/L Chloride 107 (96-114) mmol/L Carbon Dioxide 23 (20-32) mmol/L BUN 14 (5-24) mg/dL Creatinine 0.8 (0.5-1.5) mg/dL Estimated Creat Clear 113.32 Estimated GFR 105 ml/min Glucose 88 (60-115) mg/dL Lactate 1.1 (0.5-1.9) mmol/L Calcium 8.9 (8.4-10.6) mg/dL C-Reactive Protein 0.8 (0.5-1.0) mg/dL Procalcitonin 0.07 (<0.50) ng/mL HCG, Qual (Negative) Urine Color (Yellow) Urine Appearance (Clear) Urine pH (5.0-8.5) Ur Specific [place] (1.000-1.030) Urine Protein (Negative) Urine Glucose (UA) (Negative) Urine Ketones (Negative) Urine Blood (Negative) Urine Nitrite (Negative) Urine Bilirubin (Negative) Urine Urobilinogen (0.2-1.0) Ur Leukocyte Esterase (Negative) Urine RBC (0-2) Urine WBC (0-5) Ur Squamous Epith Cells (None-Few) Amorphous Sediment (None) Urine Bacteria (None) Urine Opiates Screen (Negative) Ur Oxycodone Screen (Negative) Urine Methadone Screen (Negative) Ur Propoxyphene Screen (Negative) Ur Barbiturates Screen (Negative) U Tricyclic Antidepress (Negative) Ur Phencyclidine Scrn (Negative) Ur Amphetamines Screen (Negative) U Methamphetamines Scrn (Negative) U Benzodiazepines Scrn (Negative) Urine Cocaine Screen (Negative) U Marijuana (THC) Screen (Negative) Ur Drug Screen Comment Ethyl Alcohol < 0.01 L (0.01-0.03) % 08/28/22 08/28/22 Range/Units 18:45 18:45 WBC (4.50-11.00) K/uL RBC (4.00-5.20) m/uL Hgb (12.0-16.0) gm/dL Hct (33.0-51.0) % MCV (80-100) fL MCH (26-34) pg MCHC (32-36) gm/dL RDW Coeff of Joe (11.5-15.5) % Plt Count (140-440) K/uL Neut % (Auto) (42.0-72.0) % Lymph % (Auto) (20-44) % [place] % (Auto) (0.0-11.0) % Eos % (Auto) (0.0-7.0) % Baso % (Auto) (0.0-3.0) % Neut # (Auto) (1.7-7.0) K/uL Lymph # (Auto) (0.90-2.90) K/uL [place] # (Auto) (0.00-0.90) K/UL Eos # (Auto) (0.00-0.50) K/uL Baso # (Auto) (0.00-0.30) K/uL Abs Immat Gran (auto) (0.00-0.30) K/uL Imm/Tot Granulo (auto) % Sodium (135-149) mmol/L Potassium (3.6-5.1) mmol/L Chloride (96-114) mmol/L Carbon Dioxide (20-32) mmol/L BUN (5-24) mg/dL Creatinine (0.5-1.5) mg/dL Estimated Creat Clear Estimated GFR ml/min Glucose (60-115) mg/dL Lactate (0.5-1.9) mmol/L Calcium (8.4-10.6) mg/dL C-Reactive Protein (0.5-1.0) mg/dL Procalcitonin (<0.50) ng/mL HCG, Qual Negative (Negative) Urine Color Yellow (Yellow) Urine Appearance Turbid A (Clear) Urine pH 5.5 (5.0-8.5) Ur Specific [place] >= 1.030 (1.000-1.030) Urine Protein 1+ A (Negative) Urine Glucose (UA) Negative (Negative) Urine Ketones 3+ A (Negative) Urine Blood Negative (Negative) Urine Nitrite Negative (Negative) Urine Bilirubin 1+ A (Negative) Urine Urobilinogen 0.2 (0.2-1.0) Ur Leukocyte Esterase Trace A (Negative) Urine RBC 0-2 (0-2) Urine WBC 2-5 (0-5) Ur Squamous Epith Cells Few (None-Few) Amorphous Sediment Few A (None) Urine Bacteria Moderate A (None) Urine Opiates Screen Negative (Negative) Ur Oxycodone Screen Negative (Negative) Urine Methadone Screen Negative (Negative) Ur Propoxyphene Screen Negative (Negative) Ur Barbiturates Screen Negative (Negative) U Tricyclic Antidepress Negative (Negative) Ur Phencyclidine Scrn Negative (Negative) Ur Amphetamines Screen Negative (Negative) U Methamphetamines Scrn Negative (Negative) U Benzodiazepines Scrn Negative (Negative) Urine Cocaine Screen Negative (Negative) U Marijuana (THC) Screen POSITIVE A* (Negative) Ur Drug Screen Comment See Note Ethyl Alcohol (0.01-0.03) % Imaging Data Chest x-ray: Attestation: I have reviewed the pertinent imaging results. My impression: No focal pneumonia some centralized bronchial prominence. Radiologist's impression: atient: [facility] Facility:?[facility] Patient ID:?[id number] Site Patient ID:?[id number]. Site :?[id number] Study:?XRay Chest PCXR-08/28/2022 7:01:18 PM Ordering Physician:Elan Adan Final Report: Indication: Fever. Technique: Chest 1 view. Comparison: None. Findings/Impression: Cardiovascular and mediastinum: Heart size and vasculature are normal in caliber and appearance. Lungs and pleural space: Central interstitial infiltrates are present and typical of a viral infectious process or bronchitis. Remainder of the lungs and pleural spaces are clear. Bones and soft tissues: No acute findings. Dictated by Jasbir Stokes MD @ 08/28/2022 7:19:50 PM (Electronic Signature) Discharge Plan Discharge Clinical Impression: Influenza A, Vomiting, Dehydration Patient Disposition: Admitted As Inpatient
[2022-08-28 18:35] LABS: Ethanol* < 0.01 % (0.01-0.03)
--- NOTE | 2022-08-28 18:43 | CRLHL7_ITS ---
For Patients: As a result of the Cures Act, medical imaging exams and procedure reports are released immediately into your electronic medical record. You may view this report before your referring provider. If you have questions, please contact your health care provider. Indication: Fever. Technique: Chest 1 view. Comparison: None. Findings/Impression: Cardiovascular and mediastinum: Heart size and vasculature are normal in caliber and appearance. Lungs and pleural space: Central interstitial infiltrates are present and typical of a viral infectious process or bronchitis. Remainder of the lungs and pleural spaces are clear. Bones and soft tissues: No acute findings. Dictated by Jasbir Stokes MD @ 08/28/2022 7:19:50 PM (Electronically Signed)
[2022-08-28 18:44] LABS: Procalcitonin* 0.07 ng/mL (<0.50)
[2022-08-28 18:52] LABS: HCG Qualitative* Negative (Negative)
[2022-08-28 18:55] LABS: Appearance Urine Turbid (Clear); Bilirubin Urine 1+ (Negative); Blood Urine Negative (Negative); Color Urine Yellow (Yellow); Glucose Urine Negative (Negative); Ketones Urine 3+ (Negative); Leukocyte Esterase Urine Trace (Negative); Nitrite Urine Negative (Negative); Protein Urine 1+ (Negative); Specific Gravity Urine >= 1.030 (1.000-1.030); Urobilinogen Urine 0.2 (0.2-1.0); pH Urine 5.5 (5.0-8.5)
--- NOTE | 2022-08-28 18:56 | ED.NURSE ---
Per edouard Verduzco to not re-swab for COVID today prior to admission.
[2022-08-28 19:01] LABS: Amphetamine Screen Urine Negative (Negative); Barbiturate Screen Urine Negative (Negative); Benzodiazepines Screen Urine Negative (Negative); Cocaine Screen Urine Negative (Negative); Methadone Screen Urine Negative (Negative); Methamphetamines Screen Urine Negative (Negative); Opiate Screen Urine Negative (Negative); Oxycodone Screen Urine Negative (Negative); Phencyclidine Screen Urine Negative (Negative); Tricyclic Antidepressant Urine Negative (Negative)
[2022-08-28 19:02] LABS: Cannabinoid Screen Urine POSITIVE (Negative)
[2022-08-28 19:04] LABS: Amorphous Sediment Urine Few; Bacteria Urine Moderate; RBC Urine 0-2 (0-2); Squamous Epithelial Cell Urine Few (None-Few)
--- NOTE | 2022-08-28 19:31 | ED.NURSE ---
Report given to M/S RN. Pt will go to Rm 257.
[2022-08-28 19:45] VITALS: BP 119/74; PULSE 66; RESP 12; O2SAT 96
[2022-08-28 19:52] VITALS: BP 137/67; PULSE 92; RESP 16; TEMP 36.9; O2SAT 96; BMI 27.7
[2022-08-28 20:02] VITALS: BP 119/74; PULSE 66; RESP 12; TEMP 36.9
--- NOTE | 2022-08-28 21:11 | PM.IMHP1 ---
Hospitalist- H&P: HPI History of Present Illness Time Seen by Provider: 20:40 Date Seen: 08/28/22 Chief complaint: Influenza+, Weak, Possible confusion Narrative: This is a 26-year-old healthy female with frequent ER visits over the last 24 hours for influenza A infection causing weakness and dehydration. When I walk into the room, she appeared to be awake, lying down, covered in many blankets. He did not initially respond to me saying her name several times. She eventually did respond and pulled down the blankets and turned over. When I asked her to tell me about why she was here today, she said that she came for a migraine headache which is finally gone. She did not mention having influenza or being treated with Tamiflu. She said her migraine headache started 3 days ago. Per her chart and my discussion with Dr. Lucio, she came to the ER twice yesterday with profound weakness and was diagnosed with influenza a and was given Tamiflu. She was vomiting and apparently not able to keep the Tamiflu down. She also had altered mental status. She was given hydration and Zofran and felt much better so she was discharged home. Today she had fever, mental status changes, confusion, and again was profoundly weak. She continues to have emesis. It is not clear if she had a headache, since she denied that in the emergency department earlier today and she denies it now as well. She does say that she had a migraine headache over the last 3 days, though. She has not had any rashes or stiff neck. She says that she is feeling much better now. She was even wondering if she would be going home tonight. Review of Systems Status of ROS: Reports: 10 or more systems reviewed and unremarkable except as noted in History and below [facility] Medical History (Updated 08/28/22 @ 21:33 by Christen Wiley MD) Dysmenorrhea Tension headache Surgical History (Updated 08/28/22 @ 21:33 by Christen Wiley MD) H/O wisdom tooth extraction Family History (Updated 08/28/22 @ 21:36 by Christen Wiley MD) Mother Aortic aneurysm Arthritis Asthma COPD (chronic obstructive pulmonary disease) Diabetes Heart failure High blood pressure Seizure disorder Sister Aortic aneurysm Father Stroke Social History (Updated 08/28/22 @ 21:34 by Christen Wiley MD) Narrative: . Denies tobacco or alcohol use. Smoking Status: Never smoker How often do you have a drink containing alcohol: monthly or less AUDIT-C Alcohol total score: 1 Non-prescribed substance use: denies use Meds Home Medications and Allergies Home Medications Medication Instructions Recorded Confirmed Type No Known Home Medications 08/28/22 08/28/22 History Allergies Allergy/AdvReac Type Severity Reaction Status Date / Time amoxicillin Allergy Hives Verified 08/27/22 02:16 control patch AdvReac Rash Uncoded 08/27/22 02:16 Exam Narrative: Exam Narrative: General: As above in HPI, I found her in a dark room with the blankets pulled up around her, slow to respond initially. Shakey speech. Follows commands. HEENT: Normocephalic atraumatic, pupils equally round and reactive to light and accommodation. Oropharynx clear. Mucous membranes are moist. No cervical lymphadenopathy, thyromegaly or carotid bruits. No JVD. Cardiovascular: Regular rate and rhythm. No murmurs, gallops, or rubs. Chest: No increased work of breathing. Clear to auscultation bilaterally. No crackles or wheezes. Abdomen: Bowel sounds present. Soft, nondistended, nontender. No hepatosplenomegaly or masses. Extremities: No edema, no cyanosis or clubbing. Skin: No jaundice, no pallor, no rashes. Neuro: Grossly intact. No focal deficits. Const: Vital Signs, click to edit/add: Vital Signs - 24 hr 08/28/22 16:53 08/28/22 19:52 08/28/22 20:02 Temperature 101.9 F H 98.4 F 98.4 F Pulse Rate [Left P ulse Oximeter] 71 66 Pulse Rate [Pulse Oximeter] 92 Respiratory Rate 22 16 12 Blood Pressure [Le ft Upper Arm] 125/83 119/74 Blood Pressure [Ri ght Arm] 137/67 Pulse Oximetry 99 96 Oxygen Delivery Me thod Room Air Room Air 08/28/22 19:45 Temperature Pulse Rate [Left P ulse Oximeter] 66 Pulse Rate [Pulse Oximeter] Respiratory Rate 12 Blood Pressure [Le ft Upper Arm] 119/74 Blood Pressure [Ri ght Arm] Pulse Oximetry 96 Oxygen Delivery Me thod Documenting provider has reviewed patient's vital signs: yes Hospitalist - H&P: Result Labs Labs: Short CBC 08/28/22 Range/Units 18:00 WBC 11.84 H (4.50-11.00) K/uL Hgb 14.5 (12.0-16.0) gm/dL Hct 44.3 (33.0-51.0) % Plt Count 387 (140-440) K/uL BMP 08/28/22 18:00 Sodium 141 Potassium 3.6 Chloride 107 Carbon Dioxide 23 BUN 14 Creatinine 0.8 Glucose 88 Calcium 8.9 Urine 08/28/22 Range/Units 18:45 Urine Color Yellow (Yellow) Urine Appearance Turbid A (Clear) Urine pH 5.5 (5.0-8.5) Ur Specific [place] >= 1.030 (1.000-1.030) Urine Protein 1+ A (Negative) Urine Glucose (UA) Negative (Negative) Ordering Physician: Loco Lucio M.D. Date of Service: 08/28/22 Procedure(s): XR chest 1V portable Accession Number(s): [id number] cc: Loco Lucio M.D.; Deneen Barrientos M.D.~ For Patients: As a result of the Century Cures Act, medical imaging exams and procedure reports are released immediately into your electronic medical record. You may view this report before your referring provider. If you have questions, please contact your health care provider. Indication: Fever. Technique: Chest 1 view. Comparison: None. Findings/Impression: Cardiovascular and mediastinum: Heart size and vasculature are normal in caliber and appearance. Lungs and pleural space: Central interstitial infiltrates are present and typical of a viral infectious process or bronchitis. Remainder of the lungs and pleural spaces are clear. Bones and soft tissues: No acute findings. Dictated by Jasbir Stokes MD @ 08/28/2022 7:19:50 PM (Electronically Signed) Assessment and Plan Assessment and plan (1) Influenza A: Status: Acute Assessment and Plan: She is otherwise young and healthy, and there is a question on reaction to tamiflu, so treat supportively. (2) Medication reaction: Status: Acute (3) Altered mental status: Status: Acute Assessment and Plan: Unclear if this is a medication reaction from Tamiflu vs. fever vs. migraine headache vs. other. Q4H neuro checks. Admit for observation. (4) Vomiting: Status: Acute Assessment and Plan: Clears tonight. Ondansetron as needed. (5) Dehydration: Status: Acute Assessment and Plan: Improving. Encourage PO fluids.
[2022-08-28 23:30] VITALS: BP 120/62; PULSE 96; RESP 16; TEMP 37; O2SAT 95
[2022-08-29] VITALS (7 sets, daily range): BP systolic 111–133; BP diastolic 60–85; PULSE 75–98; RESP 16–20; TEMP 36.8–37.3; O2SAT 95–96
--- NOTE | 2022-08-29 06:27 | PC.NURSE ---
Admission note: Pt admitted to room 257 from ED via stretcher @ 1945 dx: influenza A for which pt was taking Tamiflu, thinks symptoms of increased weakness and confusion started after taking a few doses. Pt refused to walk from stretcher, flopped self over into bed independently. Vitally stable, afebrile. Up to BSC x1, states legs feel like noodles. Neuro's reveal some mumbled words d/t a speech impediment, moderate weakness BLE, and mild weakness BUE. Pt has asked numerous times throughout the night to have her IV removed and when she can be discharged. Admitted w/ a / RODRIGUEZ which subsided with darkness and IV Toradol.
[2022-08-29] MEDS: OMEPRAZOLE 20 MG CAPSULE DR 40 MG PO (07:03)
--- NOTE | 2022-08-29 07:23 | PM.DS1 ---
DS: Providers Provider Date Seen: 08/29/22 Date of admission: 08/28/22 19:03 Primary care physician: Deneen Barrientos MD Admitting Clinician: Christen Wiley MD Attending Physician on discharge: Anamaria Ulloa MD Date of Discharge: 08/29/22 DS: Summary Time Spent with Patient Time attestation: Total time spent providing and/or coordinating discharge services: Exam Const: Vital Signs, click to edit/add: Vital Signs - 24 hr 08/28/22 16:53 08/28/22 19:52 08/28/22 20:02 Temperature 101.9 F H 98.4 F 98.4 F Pulse Rate [Left P ulse Oximeter] 71 66 Pulse Rate [Pulse Oximeter] 92 Respiratory Rate 22 16 12 Blood Pressure [Le ft Upper Arm] 125/83 119/74 Blood Pressure [Ri ght Arm] 137/67 Pulse Oximetry 99 96 Oxygen Delivery Me thod Room Air Room Air 08/28/22 19:45 08/28/22 23:30 08/29/22 04:00 Temperature 98.6 F 99.0 F Pulse Rate [Left P ulse Oximeter] 66 Pulse Rate [Pulse Oximeter] 96 96 Respiratory Rate 12 16 18 Blood Pressure [Le ft Upper Arm] 119/74 Blood Pressure [Ri ght Arm] 120/62 111/61 Pulse Oximetry 96 95 95 Oxygen Delivery Me thod Room Air Room Air DS: Data Data Completed and Pending Labs on day of discharge: Labs from last 24 hours 08/28/22 08/28/22 08/28/22 18:45 18:45 18:00 WBC RBC Hgb Hct MCV MCH MCHC RDW Coeff of Joe Plt Count Neut % (Auto) Lymph % (Auto) [place] % (Auto) Eos % (Auto) Baso % (Auto) Neut # (Auto) Lymph # (Auto) [place] # (Auto) Eos # (Auto) Baso # (Auto) Abs Immat Gran (auto) Imm/Tot Granulo (auto) Sodium Potassium Chloride Carbon Dioxide BUN Creatinine Estimated Creat Clear Estimated GFR Glucose Lactate 1.1 Calcium C-Reactive Protein Procalcitonin HCG, Qual Negative Urine Color Yellow Urine Appearance Turbid A Urine pH 5.5 Ur Specific [place] >= 1.030 Urine Protein 1+ A Urine Glucose (UA) Negative Urine Ketones 3+ A Urine Blood Negative Urine Nitrite Negative Urine Bilirubin 1+ A Urine Urobilinogen 0.2 Ur Leukocyte Esterase Trace A Urine RBC 0-2 Urine WBC 2-5 Ur Squamous Epith Cells Few Amorphous Sediment Few A Urine Bacteria Moderate A Urine Opiates Screen Negative Ur Oxycodone Screen Negative Urine Methadone Screen Negative Ur Propoxyphene Screen Negative Ur Barbiturates Screen Negative U Tricyclic Antidepress Negative Ur Phencyclidine Scrn Negative Ur Amphetamines Screen Negative U Methamphetamines Scrn Negative U Benzodiazepines Scrn Negative Urine Cocaine Screen Negative U Marijuana (THC) Screen POSITIVE A* Ur Drug Screen Comment See Note Ethyl Alcohol 08/28/22 08/28/22 18:00 18:00 WBC 11.84 H RBC 5.41 H Hgb 14.5 Hct 44.3 MCV 82 MCH 27 MCHC 33 RDW Coeff of Joe 13.7 Plt Count 387 Neut % (Auto) 82.7 H Lymph % (Auto) 12.4 L [place] % (Auto) 4.6 Eos % (Auto) 0.0 Baso % (Auto) 0.2 Neut # (Auto) 9.80 H Lymph # (Auto) 1.50 [place] # (Auto) 0.50 Eos # (Auto) 0.00 Baso # (Auto) 0.00 Abs Immat Gran (auto) 0.00 Imm/Tot Granulo (auto) 0.1 Sodium 141 Potassium 3.6 Chloride 107 Carbon Dioxide 23 BUN 14 Creatinine 0.8 Estimated Creat Clear 113.32 Estimated GFR 105 Glucose 88 Lactate Calcium 8.9 C-Reactive Protein 0.8 Procalcitonin 0.07 HCG, Qual Urine Color Urine Appearance Urine pH Ur Specific [place] Urine Protein Urine Glucose (UA) Urine Ketones Urine Blood Urine Nitrite Urine Bilirubin Urine Urobilinogen Ur Leukocyte Esterase Urine RBC Urine WBC Ur Squamous Epith Cells Amorphous Sediment Urine Bacteria Urine Opiates Screen Ur Oxycodone Screen Urine Methadone Screen Ur Propoxyphene Screen Ur Barbiturates Screen U Tricyclic Antidepress Ur Phencyclidine Scrn Ur Amphetamines Screen U Methamphetamines Scrn U Benzodiazepines Scrn Urine Cocaine Screen U Marijuana (THC) Screen Ur Drug Screen Comment Ethyl Alcohol < 0.01 L Discharge Plan Discharge Disposition: Home, Self-Care Date of Admission: 08/28/22 19:03 Primary Care Provider: Deneen Barrientos Condition: Improved Anticipated Discharge Date/Time: 08/29/22 10:00 Discharge Medications: No Action No Known Home Medications Discharge Orders: Discharge Order (Routine); Ordered 08/29/22 Ordered By: Anamaria Ulloa Patient Education: Influenza (GEN) Additional Instructions: Take 1-2 Extra strength Tylenol with meals for your achiness, eat small/bland meals until you're feeling better. Take it easy with activity, no work until 09/01. Activity Level: Activity as Tolerated and No strenuous activity Discharge Diet: Regular Follow Up Appointments: Dneeen Barrientos MD [Primary Care Provider] - (next week for hospital f/u) Forms: niiu Info Instructions
[2022-08-29] MEDS: 0.9 % SODIUM CHLORIDE 500 ML 500 ML IV (08:00)
--- NOTE | 2022-08-29 10:55 | CRLHL7_ITS ---
For Patients: As a result of the Century Cures Act, medical imaging exams and procedure reports are released immediately into your electronic medical record. You may view this report before your referring provider. If you have questions, please contact your health care provider. INDICATION: Altered mental status. TECHNIQUE: Noncontrast axial images. Sagittal and coronal reconstructions. COMPARISON: None. FINDINGS: There is no abnormal intracranial mass effect or midline shift. No acute intracranial hemorrhage. No appreciable loss of the normal villalobos-white matter differentiation. CSF spaces are age-appropriate. No acute osseous abnormality. Minor mucosal thickening is seen scattered throughout the paranasal sinuses. No air-fluid levels. Mastoids are clear. IMPRESSION: No CT evidence of an acute intracranial abnormality. Please note that all CT scans at this facility use dose modulation, iterative reconstruction, and/or weight-based dosing when appropriate to reduce radiation dose to as low as reasonably achievable. Dictated by Dallas Melgar MD @ 08/29/2022 1:15:13 PM (Electronically Signed)
--- NOTE | 2022-08-29 13:48 | PM.IMPN1 ---
Progress Note: A&P Assessment and plan (1) Influenza A: Problem details: - intolerant of Tamiflu - not requiring supplemental oxygen Status: Acute (2) Altered mental status: Problem details: - patient has intermittent slurring of speech and confusion, query encephalopathy versus psychogenic source of symptoms - reassuring head CT Status: Acute (3) Weakness: Problem details: - profound, generalized - seen by PT and imaging recommended - discussed the case with Dr. Ch, neurologist at [facility], who requested that we add a CK and CMP to hospital labs - He also requests continued monitoring, consider LP and/or MRI if symptoms persist/worsen Status: Acute (4) Vomiting: Problem details: - resolved Status: Acute (5) Dehydration: Problem details: - improving, patient now tolerating po intake Status: Acute Plan - per above - continue close monitoring - in addition to discussion of case with Dr. Ch, discussed case with Dr. Barrientos, patient's PCP to obtain patient's baseline Subjective Date Seen: 08/29/22 Interval history: Christy initially expressed intent to go home this morning; but was unable to get out of bed without to assist at a minimum. She was seen by PT, who recommended imaging given her profound weakness. When asked about her intermittent slurring of speech, she notes that she often will slur her speech when she is tired. She denies any focal neurologic symptoms. Exam Narrative: Exam Narrative: GEN: Alert HEENT: Normal external ears, PERRL bilaterally, requires prompting to follow the light, but with prompting EOMIs. Tongue protrudes midline CV: RRR, No concerning murmurs, rubs, or gallops R: LCTA bilaterally without concerning wheezing, rales, or rhonchi Ext: wwp, no concerning edema Skin: No concerning skin lesions or rashes on exposed skin Neuro: Patient laying in bed and appears quite tired, requires prompts to sit up and then needs to use her upper extremities to balance herself while seated. No resting tremor. 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 She has weakness with bilateral lower extremity extension at the knee, normal flexion at the knee bilaterally. Normal hip flexion bilaterally with mild weakness. Brisk DTRs at the patella bilaterally Psych: Intermittently appears to have psychomotor slowing Const: Vital Signs, click to edit/add: Vital Signs - 24 hr 08/28/22 16:53 08/28/22 19:52 08/28/22 20:02 Temperature 101.9 F H 98.4 F 98.4 F Pulse Rate [Left P ulse Oximeter] 71 66 Pulse Rate [Pulse Oximeter] 92 Respiratory Rate 22 16 12 Blood Pressure [Le ft Upper Arm] 125/83 119/74 Blood Pressure [Ri ght Arm] 137/67 Pulse Oximetry 99 96 Oxygen Delivery Me thod Room Air Room Air 08/28/22 19:45 08/28/22 23:30 08/29/22 04:00 Temperature 98.6 F 99.0 F Pulse Rate [Left P ulse Oximeter] 66 Pulse Rate [Pulse Oximeter] 96 96 Respiratory Rate 12 16 18 Blood Pressure [Le ft Upper Arm] 119/74 Blood Pressure [Ri ght Arm] 120/62 111/61 Pulse Oximetry 96 95 95 Oxygen Delivery Ri thod Room Air Room Air 08/29/22 07:55 08/29/22 08:21 Temperature 98.7 F 98.7 F Pulse Rate [Left P ulse Oximeter] Pulse Rate [Pulse Oximeter] 83 Respiratory Rate 16 16 Blood Pressure [Le ft Upper Arm] Blood Pressure [Ri ght Arm] 127/65 Pulse Oximetry 95 Oxygen Delivery Me thod Room Air Labs Labs: Laboratory Results - last 24 hr 08/28/22 08/28/22 08/28/22 18:00 18:00 18:00 WBC 11.84 H RBC 5.41 H Hgb 14.5 Hct 44.3 MCV 82 MCH 27 MCHC 33 RDW Coeff of Joe 13.7 Plt Count 387 Neut % (Auto) 82.7 H Lymph % (Auto) 12.4 L [place] % (Auto) 4.6 Eos % (Auto) 0.0 Baso % (Auto) 0.2 Neut # (Auto) 9.80 H Lymph # (Auto) 1.50 [place] # (Auto) 0.50 Eos # (Auto) 0.00 Baso # (Auto) 0.00 Abs Immat Gran (auto) 0.00 Imm/Tot Granulo (auto) 0.1 Sodium 141 Potassium 3.6 Chloride 107 Carbon Dioxide 23 BUN 14 Creatinine 0.8 Estimated Creat Clear 113.32 Estimated GFR 105 Glucose 88 Lactate 1.1 Calcium 8.9 C-Reactive Protein 0.8 Procalcitonin 0.07 HCG, Qual Urine Color Urine Appearance Urine pH Ur Specific [place] Urine Protein Urine Glucose (UA) Urine Ketones Urine Blood Urine Nitrite Urine Bilirubin Urine Urobilinogen Ur Leukocyte Esterase Urine RBC Urine WBC Ur Squamous Epith Cells Amorphous Sediment Urine Bacteria Urine Opiates Screen Ur Oxycodone Screen Urine Methadone Screen Ur Propoxyphene Screen Ur Barbiturates Screen U Tricyclic Antidepress Ur Phencyclidine Scrn Ur Amphetamines Screen U Methamphetamines Scrn U Benzodiazepines Scrn Urine Cocaine Screen U Marijuana (THC) Screen Ur Drug Screen Comment Ethyl Alcohol < 0.01 L 08/28/22 08/28/22 18:45 18:45 WBC RBC Hgb Hct MCV MCH MCHC RDW Coeff of Joe Plt Count Neut % (Auto) Lymph % (Auto) [place] % (Auto) Eos % (Auto) Baso % (Auto) Neut # (Auto) Lymph # (Auto) [place] # (Auto) Eos # (Auto) Baso # (Auto) Abs Immat Gran (auto) Imm/Tot Granulo (auto) Sodium Potassium Chloride Carbon Dioxide BUN Creatinine Estimated Creat Clear Estimated GFR Glucose Lactate Calcium C-Reactive Protein Procalcitonin HCG, Qual Negative Urine Color Yellow Urine Appearance Turbid A Urine pH 5.5 Ur Specific [place] >= 1.030 Urine Protein 1+ A Urine Glucose (UA) Negative Urine Ketones 3+ A Urine Blood Negative Urine Nitrite Negative Urine Bilirubin 1+ A Urine Urobilinogen 0.2 Ur Leukocyte Esterase Trace A Urine RBC 0-2 Urine WBC 2-5 Ur Squamous Epith Cells Few Amorphous Sediment Few A Urine Bacteria Moderate A Urine Opiates Screen Negative Ur Oxycodone Screen Negative Urine Methadone Screen Negative Ur Propoxyphene Screen Negative Ur Barbiturates Screen Negative U Tricyclic Antidepress Negative Ur Phencyclidine Scrn Negative Ur Amphetamines Screen Negative U Methamphetamines Scrn Negative U Benzodiazepines Scrn Negative Urine Cocaine Screen Negative U Marijuana (THC) Screen POSITIVE A* Ur Drug Screen Comment See Note Ethyl Alcohol
[2022-08-29 14:48] LABS: Albumin* 4.1 g/dL (3.3-5.0); Chloride* 109 mmol/L (96-114); Potassium* 3.3 mmol/L (3.6-5.1); Sodium* 140 mmol/L (135-149)
[2022-08-29 14:50] LABS: Bilirubin Total* 0.6 mg/dL (0.1-1.5); Creatinine* 0.7 mg/dL (0.5-1.5); Est. Creatinine Clearance* 120.51; Estimated Glomerular Filt Rate 124 ml/min
[2022-08-29 14:51] LABS: Alanine Aminotransferase* 35 U/L (4-35); Alkaline Phosphatase* 58 U/L (40-150); Aspartate Amino Transferase* 64 U/L (12-35); Blood Urea Nitrogen* 13 mg/dL (5-24); Calcium* 8.2 mg/dL (8.4-10.6); Carbon Dioxide* 19 mmol/L (20-32); Creatine Kinase* 712 U/L (41-117); Glucose* 84 mg/dL (60-115); Total Protein* 6.9 g/dL (6.0-8.3)
[2022-08-29] MEDS: 0.9 % SODIUM CHLORIDE 1000 ml 1,000 ML 125 ML IV ×2 (15:31→23:18)
[2022-08-29] MEDS: POTASSIUM BICARB 25 MEQ EFFERVESCENT TAB PO (18:26)
[2022-08-30 03:45] VITALS: BP 132/83; PULSE 96; RESP 14; TEMP 36.7; O2SAT 96
--- NOTE | 2022-08-30 05:15 | PC.NURSE ---
Shift note : Pt alert, denies any pain, more conversive this am, strength improving from moderate to mild weakness, continues w/ slightly mumbled speech, taking in fluids w/o difficulty, afebrile. Pt talking of going home today.
[2022-08-30] MEDS: 0.9 % SODIUM CHLORIDE 1000 ml 1,000 ML 125 ML IV (06:45)
[2022-08-30] MEDS: OMEPRAZOLE 20 MG CAPSULE DR 40 MG PO (06:45)
[2022-08-30 07:01] LABS: Basophils Absolute Auto 0.01 K/uL (0.00-0.30); Basophils Percent Auto 0.1 % (0.0-3.0); Hematocrit 37.6 % (33.0-51.0); Hemoglobin* 12.2 gm/dL (12.0-16.0); Immature Granulocytes Abs Auto 0.01 K/uL (0.00-0.30); Immature Granulocytes Pct Auto 0.1 %; Lymphocytes Absolute Auto 2.21 K/uL (0.90-2.90); Lymphocytes Percent Auto 27.4 % (20-44); Mean Corpuscular HGB Conc 32 gm/dL (32-36); Mean Corpuscular Hemoglobin 27 pg (26-34); Mean Corpuscular Volume 82 fL (80-100); Monocytes Percent Auto 6.3 % (0.0-11.0); Neutrophils Absolute Auto 5.33 K/uL (1.7-7.0); Neutrophils Percent Auto 66.1 % (42.0-72.0); Platelet Count* 315 K/uL (140-440); RDW Coefficient of Variation % 13.9 % (11.5-15.5); Red Blood Count 4.59 m/uL (4.00-5.20); White Blood Count* 8.07 K/uL (4.50-11.00)
[2022-08-30 07:03] LABS: Slide Review Reflex No
[2022-08-30 07:21] LABS: Albumin* 3.4 g/dL (3.3-5.0); Chloride* 111 mmol/L (96-114); Sodium* 140 mmol/L (135-149)
[2022-08-30 07:22] LABS: Potassium* 3.4 mmol/L (3.6-5.1)
[2022-08-30 07:23] LABS: Creatinine* 0.7 mg/dL (0.5-1.5); Est. Creatinine Clearance* 120.51; Estimated Glomerular Filt Rate 124 ml/min
[2022-08-30 07:24] LABS: Alanine Aminotransferase* 40 U/L (4-35); Alkaline Phosphatase* 52 U/L (40-150); Aspartate Amino Transferase* 54 U/L (12-35); Bilirubin Total* 0.5 mg/dL (0.1-1.5); Blood Urea Nitrogen* 11 mg/dL (5-24); Carbon Dioxide* 22 mmol/L (20-32); Creatine Kinase* 327 U/L (41-117); Glucose* 88 mg/dL (60-115); Total Protein* 6.2 g/dL (6.0-8.3)
[2022-08-30 07:25] LABS: Calcium* 7.8 mg/dL (8.4-10.6)
[2022-08-30 08:03] VITALS: BP 124/78; PULSE 95; RESP 18; TEMP 36.8; O2SAT 98
[2022-08-30] MEDS: POTASSIUM BICARB 25 MEQ EFFERVESCENT TAB PO ×2 (08:52→17:57)
--- NOTE | 2022-08-30 10:24 | P.IMPN_ITS ---
Progress Note: A&P Assessment and plan (1) Influenza A: Problem details: - intolerant of Tamiflu - not requiring supplemental oxygen Status: Acute (2) Altered mental status: Problem details: - patient has intermittent slurring of speech and confusion, query encephalopathy versus psychogenic source of symptoms - reassuring head CT - patient is answering questions appropriately and does not appear altered 08/30/2022, continues to have intermittent slurring of speech Status: Acute (3) Weakness: Problem details: - profound, generalized - seen by PT and imaging recommended - discussed the case with Dr. Ch, neurologist at [facility] on 08/29, requested addition of CK and CMP to hospital labs - He also requests continued monitoring, consider LP and/or MRI if symptoms persist/worsen - given minimal improvement 08/30, will discuss LP with anesthesia team; brain and cervical/thoracic/lumbar spine MRI ordered for 08/31/2022 (unavailable today) - patient's exam is abnormal but nonfocal, and not consistent with her inability to ambulate Status: Acute (4) Vomiting: Problem details: - resolved Status: Acute (5) Dehydration: Problem details: - improving, patient now tolerating po intake - given 24 hours of IV fluid hydration for elevated CK on 08/29, significant improvement 08/30 Status: Acute (6) Elevated CK: Problem details: - improved, patient denies any muscle pain Status: Acute Plan - per above - discussed case with at bedside, questions answered. He notes that patient's profound weakness started soon after 1 dose of Tamiflu, is amenable to LP and MRI for further workup of symptoms Subjective Date Seen: 08/30/22 Interval history: Christy initially expressed intent to go home this morning; but was unable to get out of bed without to assist at a minimum. She was seen by PT, who recommended imaging given her profound weakness. When asked about her intermittent slurring of speech, she notes that she often will slur her speech when she is tired. She denies any focal neurologic symptoms. Exam Narrative: Exam Narrative: GEN: Appears tired but opens eyes to voice and follows commands, intermittently slurring of speech HEENT: Normal external ears, no scleral icterus. Full range of motion of the neck, no nuchal rigidity CV: RRR, No concerning murmurs, rubs, or gallops R: LCTA bilaterally without concerning wheezing, rales, or rhonchi Ext: wwp, no concerning edema Skin: No concerning skin lesions or rashes on exposed skin Neuro: PERRL and EOMIs bilaterally. No facial asymmetry. No pronator drift, no resting tremor. DTRs are brisk at bilateral patella. Strength mildly decreased with knee extension, normal bilateral knee flexion. Normal hip flexion Psych: Appropriate Const: Vital Signs, click to edit/add: Vital Signs - 24 hr 08/29/22 13:47 08/29/22 15:51 08/29/22 19:45 Temperature 99.0 F 98.2 F 99.1 F Pulse Rate [Pulse Oximeter] 85 94 98 Respiratory Rate 20 18 16 Blood Pressure [Ri ght Arm] 121/70 133/85 120/73 Pulse Oximetry 96 95 96 Oxygen Delivery Me thod Room Air Room Air Room Air 08/29/22 23:15 08/30/22 03:45 08/30/22 08:03 Temperature 99.2 F 98.0 F 98.3 F Pulse Rate [Pulse Oximeter] 75 96 95 Respiratory Rate 16 14 18 Blood Pressure [Ri ght Arm] 128/60 132/83 124/78 Pulse Oximetry 96 96 98 Oxygen Delivery Me thod Room Air Room Air Room Air Labs Labs: Laboratory Results - last 24 hr 08/29/22 08/30/22 08/30/22 14:28 06:13 06:13 WBC 8.07 RBC 4.59 Hgb 12.2 Hct 37.6 MCV 82 MCH 27 MCHC 32 RDW Coeff of Joe 13.9 Plt Count 315 Neut % (Auto) 66.1 Lymph % (Auto) 27.4 [place] % (Auto) 6.3 Eos % (Auto) 0.0 Baso % (Auto) 0.1 Neut # (Auto) 5.33 Lymph # (Auto) 2.21 [place] # (Auto) 0.50 Eos # (Auto) 0.00 Baso # (Auto) 0.01 Abs Immat Gran (auto) 0.01 Imm/Tot Granulo (auto) 0.1 Sodium 140 140 Potassium 3.3 L 3.4 L Chloride 109 111 Carbon Dioxide 19 L 22 BUN 13 11 Creatinine 0.7 0.7 Estimated Creat Clear 120.51 120.51 Estimated GFR 124 124 Glucose 84 88 Calcium 8.2 L 7.8 L Total Bilirubin 0.6 0.5 AST 64 H 54 H ALT 35 40 H Alkaline Phosphatase 58 52 Total Creatine Kinase 712 H 327 H Total Protein 6.9 6.2 Albumin 4.1 3.4
[2022-08-30 11:42] VITALS: BP 122/72; PULSE 79; RESP 16; TEMP 36.7; O2SAT 97
--- NOTE | 2022-08-30 13:55 | W.ANESCHARGE ---
Anesthesia Charges Start Date/Time Anesthesia Start Date: 08/30/22 Anesthesia Start Time: 13:01 Stop Date/Time Anesthesia Stop Date: 08/30/22 Anesthesia Stop Time: 13:31 Summary Emergency: Yes
--- NOTE | 2022-08-30 13:56 | SUR.ANES ---
Called by hospitalist for LP. Consent signed by . sitting with support of 2 nurses. sterile prep and drape. L4-5, 24 sprotte needle, clear free flowing fluid. collected 10 drops in each tube. patient tolerated procedure well. 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
[2022-08-30 14:49] LABS: Glucose, CSF* 49 Mg/dL (40-70); Total Protein, CSF 47 Mg/dL (15-45)
[2022-08-30 14:52] LABS: Appearance CSF Clear (Clear); Color CSF Colorless (Colorless); RBC, CSF 39 Cells/uL
[2022-08-30 14:53] LABS: WBC, CSF 22 Cells/uL
[2022-08-30 15:19] LABS: CSF Polynuclear Cells 42 %
[2022-08-30 15:44] LABS: CSF Mononuclear Cells 58 %
[2022-08-30 16:00] VITALS: BP 126/83; PULSE 89; RESP 18; TEMP 36.9; O2SAT 96
[2022-08-30] MEDS: ACETAMINOPHEN 325 MG TABLET 650 MG PO (17:58)
[2022-08-30 19:57] VITALS: BP 132/93; PULSE 71; RESP 18; TEMP 36.9; O2SAT 96
[2022-08-30 23:00] VITALS: BP 118/79; PULSE 71; PULSE 88; RESP 18; TEMP 36.8; O2SAT 96
[2022-08-31] MEDS: ACETAMINOPHEN 325 MG TABLET 650 MG PO ×3 (00:01→19:24)
[2022-08-31 04:05] VITALS: BP 120/77; PULSE 79; RESP 16; TEMP 36.8; O2SAT 93
--- NOTE | 2022-08-31 05:13 | PC.NURSE ---
Shift note: Pts' speech is slow but clear, she follows commands, able to move all extremities equally while is bed. Pt is incontinent of urine, afebrile, ambulates with heavy assist of 2 or Nathanael lift. Pt unable to take steps but able to move in bed with directions.
[2022-08-31] MEDS: KETOROLAC 30 MG/ML inj IVP (06:46)
[2022-08-31] MEDS: OMEPRAZOLE 20 MG CAPSULE DR 40 MG PO (06:46)
[2022-08-31 07:00] VITALS: BP 133/91; PULSE 72; RESP 18; TEMP 36.8; O2SAT 96
[2022-08-31 07:13] LABS: Basophils Absolute Auto 0.02 K/uL (0.00-0.30); Basophils Percent Auto 0.2 % (0.0-3.0); Hematocrit 43.9 % (33.0-51.0); Hemoglobin* 14.4 gm/dL (12.0-16.0); Immature Granulocytes Abs Auto 0.02 K/uL (0.00-0.30); Immature Granulocytes Pct Auto 0.2 %; Lymphocytes Absolute Auto 2.14 K/uL (0.90-2.90); Lymphocytes Percent Auto 22.3 % (20-44); Mean Corpuscular HGB Conc 33 gm/dL (32-36); Mean Corpuscular Hemoglobin 27 pg (26-34); Mean Corpuscular Volume 82 fL (80-100); Monocytes Percent Auto 4.7 % (0.0-11.0); Neutrophils Percent Auto 72.6 % (42.0-72.0); Platelet Count* 439 K/uL (140-440); RDW Coefficient of Variation % 13.5 % (11.5-15.5); Red Blood Count 5.36 m/uL (4.00-5.20); White Blood Count* 9.59 K/uL (4.50-11.00)
[2022-08-31 07:25] LABS: Slide Review Reflex No
[2022-08-31 07:43] LABS: Albumin* 4.5 g/dL (3.3-5.0); Chloride* 109 mmol/L (96-114); Sodium* 142 mmol/L (135-149)
[2022-08-31 07:44] LABS: Potassium* 3.4 mmol/L (3.6-5.1)
[2022-08-31 07:46] LABS: Alkaline Phosphatase* 69 U/L (40-150); Aspartate Amino Transferase* 42 U/L (12-35); Bilirubin Total* 0.6 mg/dL (0.1-1.5); Blood Urea Nitrogen* 10 mg/dL (5-24); Carbon Dioxide* 23 mmol/L (20-32); Creatine Kinase* 159 U/L (41-117); Creatinine* 0.7 mg/dL (0.5-1.5); Est. Creatinine Clearance* 120.51; Estimated Glomerular Filt Rate 124 ml/min; Glucose* 103 mg/dL (60-115); Total Protein* 7.7 g/dL (6.0-8.3)
[2022-08-31 07:47] LABS: Alanine Aminotransferase* 39 U/L (4-35); Calcium* 8.7 mg/dL (8.4-10.6); Magnesium* 2.3 mg/dL (1.5-2.6)
--- NOTE | 2022-08-31 09:18 | PM.IMPN1 ---
Progress Note: A&P Assessment and plan (1) Influenza A: Problem details: - intolerant of Tamiflu - not requiring supplemental oxygen Status: Acute (2) Altered mental status: Problem details: - patient has intermittent slurring of speech and confusion, query encephalopathy versus psychogenic source of symptoms - reassuring head CT - patient is answering questions appropriately and does not appear altered 08/30/2022, continues to have intermittent slurring of speech Status: Acute (3) Weakness: Problem details: - profound, generalized, nonspecific, see exam above for specific findings. No respiratory involvement. Labs reassuring, negative mono, normal TSH - PT and OT following - discussed case with Dr. Ch, neurologist at [facility] 08/29, requested adding CK/CMP to hospital labs (mild CK elevation, improved by >50% after 1 day of IVFs) - He also requests continued monitoring, consider LP and/or MRI if symptoms persist/worsen - given minimal improvement 08/30, LP performed; brain and cervical/thoracic/lumbar spine MRI ordered to be completed today, plan pending results - patient's exam is abnormal but nonfocal, and not consistent with her inability to ambulate Status: Acute (4) Vomiting: Problem details: - present on admission, resolved Status: Acute (5) Dehydration: Problem details: - improving, patient now tolerating po intake - given 24 hours of IV fluid hydration for elevated CK on 08/29, significant improvement 08/30 Status: Acute (6) Elevated CK: Problem details: - improved, patient denies any muscle pain Status: Acute (7) Elevated LFTs: Problem details: - likely related to acute illness, mono negative - abdominal ultrasound today Status: Acute Plan - per above. Further plan of care to be made pending MRI results - Dameon updated at bedside, questions answered. He queries whether patient's symptoms could be psychogenic in nature, adds that Christy's mother had schizophrenia Subjective Date Seen: 08/31/22 Interval history: No acute events overnight. Patient continues to require assistance for all ADLs, has had urinary incontinence (but notes that she was able to sensate the need for micturition, just was unable to get to the bathroom in time with assistance). No growth at this time on LP cultures, obtained 08/30. No concerning findings on cell count. Urine and blood cultures currently no growth to date, head CT (08/29) within normal limits. Exam Narrative: Exam Narrative: GEN: Alert but sleepy, answering questions when asked HEENT: Normal external ears, intermittently only will gaze upward, otherwise EOMIs CV: RRR, No concerning murmurs, rubs, or gallops R: LCTA bilaterally without concerning wheezing, rales, or rhonchi Ext: wwp, no concerning edema Skin: No concerning skin lesions or rashes Neuro: No facial droop. Tongue protrudes midline. Able to sit on edge of bed with good truncal stability for neurologic exam. 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 Normal hip flexion bilaterally while seated, normal knee flexion and extension with mildly reduced strength for both movements. Normal plantar flexion and dorsiflexion, bilateral feet. DTRs brisk and symmetric at patella bilaterally. Patient required redirection with directions during exam Psych: Flat affect, some psychomotor slowing noted Const: Vital Signs, click to edit/add: Vital Signs - 24 hr 08/30/22 11:42 08/30/22 16:00 08/30/22 19:57 Temperature 98.1 F 98.4 F 98.5 F Pulse Rate [Pulse Oximeter] 79 89 71 Respiratory Rate 16 18 18 Blood Pressure [Ri ght Arm] 122/72 126/83 132/93 H Pulse Oximetry 97 96 96 Oxygen Delivery Me thod Room Air Room Air Room Air 08/30/22 23:00 08/30/22 23:00 08/31/22 04:05 Temperature 98.2 F 98.3 F Pulse Rate [Pulse Oximeter] 71 88 79 Respiratory Rate 18 18 16 Blood Pressure [Ri ght Arm] 118/79 120/77 Pulse Oximetry 96 93 Oxygen Delivery Me thod Room Air Room Air Labs Labs: Laboratory Results - last 24 hr 08/30/22 08/30/22 08/31/22 06:13 13:46 06:55 WBC 9.59 RBC 5.36 H Hgb 14.4 Hct 43.9 MCV 82 MCH 27 MCHC 33 RDW Coeff of Joe 13.5 Plt Count 439 Neut % (Auto) 72.6 H Lymph % (Auto) 22.3 [place] % (Auto) 4.7 Eos % (Auto) 0.0 Baso % (Auto) 0.2 Neut # (Auto) 7.00 Lymph # (Auto) 2.14 [place] # (Auto) 0.50 Eos # (Auto) 0.00 Baso # (Auto) 0.02 Abs Immat Gran (auto) 0.02 Imm/Tot Granulo (auto) 0.2 Sodium Potassium Chloride Carbon Dioxide BUN Creatinine Estimated Creat Clear Estimated GFR Glucose Calcium Magnesium Total Bilirubin AST ALT Alkaline Phosphatase Total Creatine Kinase Total Protein Albumin TSH 1.520 CSF Volume 2.0 CSF Appearance Clear CSF Color Colorless CSF WBC 22 CSF RBC 39 CSF Mononuclear Cells 58 CSF Polynuclear WBCs 42 CSF Glucose 49 CSF Total Protein 47 H 08/31/22 06:55 WBC RBC Hgb Hct MCV MCH MCHC RDW Coeff of Joe Plt Count Neut % (Auto) Lymph % (Auto) [place] % (Auto) Eos % (Auto) Baso % (Auto) Neut # (Auto) Lymph # (Auto) [place] # (Auto) Eos # (Auto) Baso # (Auto) Abs Immat Gran (auto) Imm/Tot Granulo (auto) Sodium 142 Potassium 3.4 L Chloride 109 Carbon Dioxide 23 BUN 10 Creatinine 0.7 Estimated Creat Clear 120.51 Estimated GFR 124 Glucose 103 Calcium 8.7 Magnesium 2.3 Total Bilirubin 0.6 AST 42 H ALT 39 H Alkaline Phosphatase 69 Total Creatine Kinase 159 H Total Protein 7.7 Albumin 4.5 TSH CSF Volume CSF Appearance CSF Color CSF WBC CSF RBC CSF Mononuclear Cells CSF Polynuclear WBCs CSF Glucose CSF Total Protein
[2022-08-31] MEDS: POTASSIUM BICARB 25 MEQ EFFERVESCENT TAB PO ×2 (10:13→18:54)
--- NOTE | 2022-08-31 10:22 | CRLHL7_ITS ---
For Patients: As a result of the Century Cures Act, medical imaging exams and procedure reports are released immediately into your electronic medical record. You may view this report before your referring provider. If you have questions, please contact your health care provider. Indication: Altered mental status. Weakness. Technique: Multiplanar, multisequence MRI of the brain was performed without intravenous contrast. Comparison: CT head 08/29/2022. Findings: Focal restricted diffusion involving the splenium of the corpus callosum. There is associated T2 FLAIR hyperintensity. The lateral and 3rd ventricles are moderately enlarged. Fourth ventricle appears normal in size. There is T2 FLAIR hyperintensity noted along the occipital and frontal horns of the lateral ventricles, suggestive of transependymal flow. Overall degree of ventricular dilatation is better visualized and appears increased compared to prior CT Complete effacement at the inferior aspect of the cerebral aqueduct. There is inferior displacement of the cerebellar tonsils approximately 1.5 cm below the foramen magnum. Additionally there is loss of the prepontine cistern. Decreased of the mamillopontine distance. There is sulcal effacement. No midline shift. Major intracranial vascular flow voids appear grossly intact. Both globes are preserved. Moderate paranasal sinus mucosal disease. Impression: 1. Moderate supratentorial hydrocephalus, with suggestion of transependymal flow along the occipital and frontal horns of the lateral ventricles. Effacement of the inferior aspect of the cerebral aqueduct. Overall degree of ventricular dilatation is better visualized and appears increased compared to prior CT. 2. Inferior displacement of the cerebellar tonsils appearing increased or new since CT 08/29/2022. 3. 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 4. Neurosurgical consultation is recommended. The above findings were communicated over the telephone with Dr. Wiley By Dr. Archuleta at 1931 hours on 08/31/2022. (Electronically Signed)
[2022-08-31 11:00] VITALS: BP 129/86; PULSE 62; RESP 16; TEMP 36.6; O2SAT 97
[2022-08-31 11:08] LABS: Mono Screen* Negative (Negative)
--- NOTE | 2022-08-31 12:31 | CRLHL7_ITS ---
For Patients: As a result of the Century Cures Act, medical imaging exams and procedure reports are released immediately into your electronic medical record. You may view this report before your referring provider. If you have questions, please contact your health care provider. Indication: Weakness. Altered mental status. Technique: Multiplanar, multisequence MRI of the thoracic spine was performed without the use of intravenous contrast. Comparison: MRI cervical spine the same day. Findings: The vertebral body heights are maintained without evidence of fracture. No marrow infiltrative process. Disc space heights are preserved. No spondylolisthesis. No abnormal cord signal. Small central disc protrusion at the T3-4 level, without spinal canal or neural foraminal narrowing. No overt evidence of spinal canal or neuroforaminal compromise throughout the thoracic spine. Impression: 1. Minimal spondylosis at T3-4. 2. No overt evidence for high-grade spinal canal or neural foraminal narrowing. 3. No abnormal cord signal. (Electronically Signed)
--- NOTE | 2022-08-31 12:31 | CRLHL7_ITS ---
For Patients: As a result of the Century Cures Act, medical imaging exams and procedure reports are released immediately into your electronic medical record. You may view this report before your referring provider. If you have questions, please contact your health care provider. Indication: Altered mental status. Weakness. Technique: MRI of the cervical spine was performed without the use of intravenous contrast. Comparison: MR of the brain the same day. Findings: The vertebral body heights are maintained without evidence of fracture. No marrow infiltrative process. Disc space heights are preserved. No spondylolisthesis. Inferior disc space cerebellar tonsils. Loss of the prepontine cistern. Please refer to separately dictated MRI of the brain for further details. No abnormal cord signal. C2-3: No spinal canal or neural foraminal narrowing. C3-4: No spinal canal or neural foraminal narrowing. C4-5: No spinal canal or neural foraminal narrowing. C5-6: No spinal canal or neural foraminal narrowing. C6-7: No spinal canal or neural foraminal narrowing. C7-T1: No spinal canal or neural foraminal narrowing. Impression: 1. No spinal canal or neural foraminal narrowing. 2. No abnormal cord signal. 3. Inferiorly displaced cerebellar tonsils. Please refer to MRI of the brain report for further details. (Electronically Signed)
--- NOTE | 2022-08-31 12:31 | CRLHL7_ITS ---
For Patients: As a result of the Century Cures Act, medical imaging exams and procedure reports are released immediately into your electronic medical record. You may view this report before your referring provider. If you have questions, please contact your health care provider. Indication: Altered mental status. Weakness. Technique: T2, T1, and STIR sagittal as well as T1 and T2 axial sequences were obtained. No IV contrast. Comparison: None available. Findings: Lumbosacral transitional anatomy. When counting from C2, transitional segment is labeled as L5, with sacralization. The vertebral body heights are maintained without evidence of fracture. No discrete T1 hypointense marrow infiltrating process. The conus medullaris terminates at L1, normal. Cauda equina appears unremarkable. T12-L1: No spinal canal or neural foraminal stenosis. L1-2: No spinal canal or neural foraminal stenosis. L2-3: No spinal canal or neural foraminal stenosis. L3-4: No spinal canal or neural foraminal stenosis. L4-5: No spinal canal or neural foraminal stenosis. L5-S1: No spinal canal or neural foraminal stenosis. Impression: 1. Lumbosacral transitional anatomy. When counting from C2, transitional segment is labeled as L5, with sacralization. Careful clinical correlation and radiographic localization is recommended prior to any planned surgical intervention. 2. No high-grade spinal canal or neural foraminal narrowing. Dictated by Edi Archuleta MD @ 08/31/2022 7:40:42 PM (Electronically Signed)
[2022-08-31 15:00] VITALS: BP 104/54; PULSE 59; RESP 17; TEMP 36.8; O2SAT 100
--- NOTE | 2022-08-31 18:00 | CRLHL7_ITS ---
For Patients: As a result of the Cures Act, medical imaging exams and procedure reports are released immediately into your electronic medical record. You may view this report before your referring provider. If you have questions, please contact your health care provider. INDICATION: Elevated LFTs. COMPARISON: None. TECHNIQUE: Real time villalobos scale imaging and color Doppler analysis was performed of the right upper quadrant. FINDINGS: Liver: The liver is normal in size. There is a ???starry junaid? appearance of the liver with multiple scattered echogenic foci and increased echogenicity of the portal triads. This is a nonspecific finding which can be seen in the setting of acute hepatitis. There is also a 1.1 x 0.7 x 1.3 cm subcapsular echogenic lesion in the right hepatic lobe with no internal vascularity. This may represent a hemangioma. Gallbladder: No stones or sludge. No wall thickening or pericholecystic fluid. Negative sonographic Bernstein sign. Bile ducts: No biliary dilation. The common bile duct measures 5 mm in diameter. Pancreas: Normal where seen. Right kidney: The right kidney measures 11.7 cm in length. No hydronephrosis, calculus, or mass. Vascular: Normal caliber proximal abdominal aorta. The IVC and main portal vein appear patent. IMPRESSION: 1. ???Starry junaid? appearance of the liver which is nonspecific but can be seen in the setting of acute hepatitis. 2. 1.3 cm echogenic lesion in the right hepatic lobe may represent a hemangioma. 3. Exam otherwise unremarkable. Dictated by Zoë Dexter MD @ 08/31/2022 5:44:03 PM (Electronically Signed)
--- NOTE | 2022-08-31 19:18 | PC.NURSE ---
Patient oriented to self and place. Patient is drowsy, and lethargic. Verbal responses are delayed and mumbled intermittently. Attempted A2 transfer to chair patient was unable to bear weight, used easy stand to get up to chair. Patient NPO after breakfast for Ultrasound and MRI. Patient is incontinent of urine. Tolerates regular diet and food requires set up. Reports headache that is improving with ice pack to neck and PRN medications.
[2022-08-31 19:39] VITALS: BP 146/98; PULSE 68; RESP 16; TEMP 36.8; O2SAT 96
[2022-08-31 22:00] VITALS: BP 125/70; PULSE 71; RESP 16; TEMP 36.6; O2SAT 96
--- NOTE | 2022-08-31 22:58 | PC.NURSE ---
Due to MRI result (Hydrocephalus), Dr decided to ship Pt to [place]. [facility] picked her at 2200. They decided it would be better to ship her via [facility]. Pt left facility at 2300.
--- NOTE | 2022-08-31 23:17 | P.DS_ITS ---
DS: Providers Provider Date Seen: 08/31/22 Date of admission: 08/30/22 10:21 Primary care physician: Deneen Barrientos MD Admitting Clinician: Christen Wiley MD Consults: 08/29/22 09:42 Consult to Physical Therapy [CONS] Stat Comment: Reason(s) for PT Consult:: Evaluate Ambulation Any Restrictions?:: Wt Bearing as Tolerated 08/31/22 09:12 Consult to Occupational Therapy [CONS] Routine Comment: Reason(s) for OT Consult:: Difficulty Managing ADLs Any Restrictions?:: Wt Bearing as Tolerated Consult to Physical Therapy [CONS] Routine Comment: Reason(s) for PT Consult:: Inability to Mobilize Any Restrictions?:: Wt Bearing as Tolerated 08/31/22 09:38 Consult to Occupational Therapy [CONS] Routine Comment: Reason(s) for OT Consult:: Evaluate and Treat Any Restrictions?:: Unknown Attending Physician on discharge: Christen Wiley MD Date of Discharge: 08/31/22 DS: Diagnosis Discharge Diagnosis (1) Altered mental status: Status: Acute Problem details: - patient has intermittent slurring of speech and confusion, query encephalopathy versus psychogenic source of symptoms - reassuring head CT - patient is answering questions appropriately and does not appear altered 08/30/2022, continues to have intermittent slurring of speech (2) Hydrocephalus: Status: Acute (3) Elevated LFTs: Status: Acute Problem details: - likely related to acute illness, mono negative - abdominal ultrasound today (4) Elevated CK: Status: Acute Problem details: - improved, patient denies any muscle pain (5) Weakness: Status: Acute Problem details: - profound, generalized, nonspecific, see exam above for specific findings. No respiratory involvement. Labs reassuring, negative mono, normal TSH - PT and OT following - discussed case with Dr. Ch, neurologist at [facility] 08/29, requested adding CK/CMP to hospital labs (mild CK elevation, improved by >50% after 1 day of IVFs) - He also requests continued monitoring, consider LP and/or MRI if symptoms persist/worsen - given minimal improvement 08/30, LP performed; brain and cervical/thoracic/lumbar spine MRI ordered to be completed today, plan pending results - patient's exam is abnormal but nonfocal, and not consistent with her inability to ambulate (6) Influenza A: Status: Acute Problem details: - intolerant of Tamiflu - not requiring supplemental oxygen (7) Medication reaction: Status: Acute (8) Vomiting: Status: Acute Problem details: - present on admission, resolved (9) Dehydration: Status: Acute Problem details: - improving, patient now tolerating po intake - given 24 hours of IV fluid hydration for elevated CK on 08/29, significant improvement 08/30 DS: Summary Hospital Course Hospital Course: This a 26-year-old female with frequent visits to the ER in 24 hours due to weakness and possible confusion. She is influenza A positive. She initially said she did not have any headache, but later said that she had migraine headache that had finally gone away. She had started Tamiflu for influenza, but was unable to complete it because she and her thought it might be causing her to have weakness and confusion. She was also vomiting and unable to keep Tamiflu down. She was admitted for observation and found to have intermittent slurring of speech and confusion. Head CT was reassuring on the 2nd hospital day. Due to the profound weakness, the case was discussed with Dr. Ch from [facility]. Suggested checking CK, CMP and consider an LP and MRI. LP was done on 08/30/2022 and was fairly unremarkable. Symptoms persisted an MRI was done today. It showed moderate supratentorial hydrocephalus with suggestion of transependymal flow along the occipital and frontal horns of the lateral ventricles. Appeared that the overall ventricular dilation and increased compared to the prior CT. There is also inferior displacement of the cerebellar tonsils appearing increased or new since the CT. Neuro surgical consultation was recommended urgently. I spoke with Dr. Tubbs from neurosurgery at [facility] who agreed that the patient should go to [facility] as soon as possible. I also spoke with an senior business architect, Dr. Mejia who accepted this patient in transfer. EMS arrived and got the patient on a stretcher. She suddenly became diaphoretic and flushed at the same time, blood pressure became acutely elevated to 180/115 and her heart rate dropped to 50s. This then resolved. She had several more episodes like this which prompted me to call for air ambulance transport instead. She was then transferred up to [place] via air. Time Spent with Patient Time attestation: Total time spent providing and/or coordinating discharge services: Exam Const: Vital Signs, click to edit/add: Vital Signs - 24 hr 08/31/22 04:05 08/31/22 07:00 08/31/22 07:00 Temperature 98.3 F 98.3 F Pulse Rate [Pulse Oximeter] 79 72 72 Respiratory Rate 16 18 18 Blood Pressure [Le ft Arm] 133/91 H Blood Pressure [Ri ght Arm] 120/77 Pulse Oximetry 93 96 Oxygen Delivery Me thod Room Air Room Air 08/31/22 11:00 08/31/22 15:00 08/31/22 15:00 Temperature 97.8 F 98.3 F Pulse Rate [Pulse Oximeter] 62 59 L 59 L Respiratory Rate 16 17 17 Blood Pressure [Le ft Arm] 129/86 Blood Pressure [Ri ght Arm] 104/54 L Pulse Oximetry 97 100 Oxygen Delivery Me thod Room Air Room Air 08/31/22 19:39 08/31/22 22:00 Temperature 98.3 F 98 F Pulse Rate [Pulse Oximeter] 68 71 Respiratory Rate 16 16 Blood Pressure [Le ft Arm] 146/98 H 125/70 Blood Pressure [Ri ght Arm] Pulse Oximetry 96 96 Oxygen Delivery Me thod Room Air Room Air DS: Data Data Completed and Pending Completed studies during hospitalization: Ordering Physician: Loco Lucio M.D. Date of Service: 08/28/22 Procedure(s): XR chest 1V portable Accession Number(s): [id number] cc: Loco Lucio M.D.; Deneen Barrientos M.D.~ For Patients: As a result of the Cures Act, medical imaging exams and procedure reports are released immediately into your electronic medical record. You may view this report before your referring provider. If you have questions, please contact your health care provider. Indication: Fever. Technique: Chest 1 view. Comparison: None. Findings/Impression: Cardiovascular and mediastinum: Heart size and vasculature are normal in caliber and appearance. Lungs and pleural space: Central interstitial infiltrates are present and typical of a viral infectious process or bronchitis. Remainder of the lungs and pleural spaces are clear. Bones and soft tissues: No acute findings. Dictated by Jasbir Stokes MD @ 08/28/2022 7:19:50 PM (Electronically Signed) Ordering Physician: Anamaria Ulloa M.D. Date of Service: 08/29/22 Procedure(s): CT head/brain wo con Accession Number(s): [id number] cc: Anamaria Ulloa M.D.; Deneen Barrientos M.D.~ For Patients: As a result of the Cures Act, medical imaging exams and procedure reports are released immediately into your electronic medical record. You may view this report before your referring provider. If you have questions, please contact your health care provider. INDICATION: Altered mental status. TECHNIQUE: Noncontrast axial images. Sagittal and coronal reconstructions. COMPARISON: None. FINDINGS: There is no abnormal intracranial mass effect or midline shift. No acute intracranial hemorrhage. No appreciable loss of the normal villalobos-white matter differentiation. CSF spaces are age-appropriate. No acute osseous abnormality. Minor mucosal thickening is seen scattered throughout the paranasal sinuses. No air-fluid levels. Mastoids are clear. IMPRESSION: No CT evidence of an acute intracranial abnormality. Please note that all CT scans at this facility use dose modulation, iterative reconstruction, and/or weight-based dosing when appropriate to reduce radiation dose to as low as reasonably achievable. Dictated by Dallas Melgar MD @ 08/29/2022 1:15:13 PM (Electronically Signed) Ordering Physician: Anamaria Ulloa M.D. Date of Service: 08/31/22 Procedure(s): MR head/brain wo con Accession Number(s): [id number] cc: Anamaria Ulloa M.D.; Deneen Barrientos M.D.~ For Patients: As a result of the Cures Act, medical imaging exams and procedure reports are released immediately into your electronic medical record. You may view this report before your referring provider. If you have questions, please contact your health care provider. Indication: Altered mental status. Weakness. Technique: Multiplanar, multisequence MRI of the brain was performed without intravenous contrast. Comparison: CT head 08/29/2022. Findings: Focal restricted diffusion involving the splenium of the corpus callosum. There is associated T2 FLAIR hyperintensity. The lateral and 3rd ventricles are moderately enlarged. Fourth ventricle appears normal in size. There is T2 FLAIR hyperintensity noted along the occipital and frontal horns of the lateral ventricles, suggestive of transependymal flow. Overall degree of ventricular dilatation is better visualized and appears increased compared to prior CT Complete effacement at the inferior aspect of the cerebral aqueduct. There is inferior displacement of the cerebellar tonsils approximately 1.5 cm below the foramen magnum. Additionally there is loss of the prepontine cistern. Decreased of the mamillopontine distance. There is sulcal effacement. No midline shift. Major intracranial vascular flow voids appear grossly intact. Both globes are preserved. Moderate paranasal sinus mucosal disease. Impression: 1. Moderate supratentorial hydrocephalus, with suggestion of transependymal flow along the occipital and frontal horns of the lateral ventricles. Effacement of the inferior aspect of the cerebral aqueduct. Overall degree of ventricular dilatation is better visualized and appears increased compared to prior CT. 2. Inferior displacement of the cerebellar tonsils appearing increased or new since CT 08/29/2022. 3. 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 4. Neurosurgical consultation is recommended. The above findings were communicated over the telephone with Dr. Wiley By Dr. Archuleta at 1931 hours on 08/31/2022. (Electronically Signed) Ordering Physician: Anamaria Ulloa M.D. Date of Service: 08/31/22 Procedure(s): MR cervical spine wo con Accession Number(s): [id number] cc: Anamaria Ulloa M.D.; Deneen Barrientos M.D.~ For Patients: As a result of the Century Cures Act, medical imaging exams and procedure reports are released immediately into your electronic medical record. You may view this report before your referring provider. If you have questions, please contact your health care provider. Indication: Altered mental status. Weakness. Technique: MRI of the cervical spine was performed without the use of intravenous contrast. Comparison: MR of the brain the same day. Findings: The vertebral body heights are maintained without evidence of fracture. No marrow infiltrative process. Disc space heights are preserved. No spondylolisthesis. Inferior disc space cerebellar tonsils. Loss of the prepontine cistern. Please refer to separately dictated MRI of the brain for further details. No abnormal cord signal. C2-3: No spinal canal or neural foraminal narrowing. C3-4: No spinal canal or neural foraminal narrowing. C4-5: No spinal canal or neural foraminal narrowing. C5-6: No spinal canal or neural foraminal narrowing. C6-7: No spinal canal or neural foraminal narrowing. C7-T1: No spinal canal or neural foraminal narrowing. Impression: 1. No spinal canal or neural foraminal narrowing. 2. No abnormal cord signal. 3. Inferiorly displaced cerebellar tonsils. Please refer to MRI of the brain report for further details. (Electronically Signed) Ordering Physician: Anamaria Ulloa M.D. Date of Service: 08/31/22 Procedure(s): MR lumbar spine wo con Accession Number(s): [id number] cc: Anamaria Ulloa M.D.; Deneen Barrientos M.D.~ For Patients: As a result of the Cures Act, medical imaging exams and procedure reports are released immediately into your electronic medical record. You may view this report before your referring provider. If you have questions, please contact your health care provider. Indication: Altered mental status. Weakness. Technique: T2, T1, and STIR sagittal as well as T1 and T2 axial sequences were obtained. No IV contrast. Comparison: None available. Findings: Lumbosacral transitional anatomy. When counting from C2, transitional segment is labeled as L5, with sacralization. The vertebral body heights are maintained without evidence of fracture. No discrete T1 hypointense marrow infiltrating process. The conus medullaris terminates at L1, normal. Cauda equina appears unremarkable. T12-L1: No spinal canal or neural foraminal stenosis. L1-2: No spinal canal or neural foraminal stenosis. L2-3: No spinal canal or neural foraminal stenosis. L3-4: No spinal canal or neural foraminal stenosis. L4-5: No spinal canal or neural foraminal stenosis. L5-S1: No spinal canal or neural foraminal stenosis. Impression: 1. Lumbosacral transitional anatomy. When counting from C2, transitional segment is labeled as L5, with sacralization. Careful clinical correlation and radiographic localization is recommended prior to any planned surgical intervention. 2. No high-grade spinal canal or neural foraminal narrowing. Dictated by Edi Archuleta MD @ 08/31/2022 7:40:42 PM (Electronically Signed) Ordering Physician: Anamaria Ulloa M.D. Date of Service: 08/31/22 Procedure(s): MR thoracic spine wo con Accession Number(s): [id number] cc: Anamaria Ulloa M.D.; Deneen Barrientos M.D.~ For Patients: As a result of the Cures Act, medical imaging exams and procedure reports are released immediately into your electronic medical record. You may view this report before your referring provider. If you have questions, please contact your health care provider. Indication: Weakness. Altered mental status. Technique: Multiplanar, multisequence MRI of the thoracic spine was performed without the use of intravenous contrast. Comparison: MRI cervical spine the same day. Findings: The vertebral body heights are maintained without evidence of fracture. No marrow infiltrative process. Disc space heights are preserved. No spondylolisthesis. No abnormal cord signal. Small central disc protrusion at the T3-4 level, without spinal canal or neural foraminal narrowing. No overt evidence of spinal canal or neuroforaminal compromise throughout the thoracic spine. Impression: 1. Minimal spondylosis at T3-4. 2. No overt evidence for high-grade spinal canal or neural foraminal narrowing. 3. No abnormal cord signal. (Electronically Signed) Ordering Physician: Anamaria Ulloa M.D. Date of Service: 08/31/22 Procedure(s): US abdomen limited Accession Number(s): [id number] cc: Anamaria Ulloa M.D.; Deneen Barrientos M.D.~ For Patients: As a result of the Cures Act, medical imaging exams and procedure reports are released immediately into your electronic medical record. You may view this report before your referring provider. If you have questions, please contact your health care provider. INDICATION: Elevated LFTs. COMPARISON: None. TECHNIQUE: Real time villalobos scale imaging and color Doppler analysis was performed of the right upper quadrant. FINDINGS: Liver: The liver is normal in size. There is a ???starry junaid? appearance of the liver with multiple scattered echogenic foci and increased echogenicity of the portal triads. This is a nonspecific finding which can be seen in the setting of acute hepatitis. There is also a 1.1 x 0.7 x 1.3 cm subcapsular echogenic lesion in the right hepatic lobe with no internal vascularity. This may represent a hemangioma. Gallbladder: No stones or sludge. No wall thickening or pericholecystic fluid. Negative sonographic Bernstein sign. Bile ducts: No biliary dilation. The common bile duct measures 5 mm in diameter. Pancreas: Normal where seen. Right kidney: The right kidney measures 11.7 cm in length. No hydronephrosis, calculus, or mass. Vascular: Normal caliber proximal abdominal aorta. The IVC and main portal vein appear patent. IMPRESSION: 1. ???Starry junaid? appearance of the liver which is nonspecific but can be seen in the setting of acute hepatitis. 2. 1.3 cm echogenic lesion in the right hepatic lobe may represent a hemangioma. 3. Exam otherwise unremarkable. Dictated by Zoë Dexter MD @ 08/31/2022 5:44:03 PM (Electronically Signed) Labs on day of discharge: Labs from last 24 hours 08/31/22 08/31/22 08/31/22 06:55 06:55 06:55 WBC 9.59 RBC 5.36 H Hgb 14.4 Hct 43.9 MCV 82 MCH 27 MCHC 33 RDW Coeff of Joe 13.5 Plt Count 439 Neut % (Auto) 72.6 H Lymph % (Auto) 22.3 Crockett % (Auto) 4.7 Eos % (Auto) 0.0 Baso % (Auto) 0.2 Neut # (Auto) 7.00 Lymph # (Auto) 2.14 Crockett # (Auto) 0.50 Eos # (Auto) 0.00 Baso # (Auto) 0.02 Abs Immat Gran (auto) 0.02 Imm/Tot Granulo (auto) 0.2 Sodium 142 Potassium 3.4 L Chloride 109 Carbon Dioxide 23 BUN 10 Creatinine 0.7 Estimated Creat Clear 120.51 Estimated GFR 124 Glucose 103 Calcium 8.7 Magnesium 2.3 Total Bilirubin 0.6 AST 42 H ALT 39 H Alkaline Phosphatase 69 Total Creatine Kinase 159 H Total Protein 7.7 Albumin 4.5 Monoscreen Negative Preliminary micro results at discharge 08/30/22 13:47 Body Fluid Culture - Preliminary Cerebrospinal Fluid 08/28/22 18:23 Blood Culture - Preliminary Blood NO GROWTH AFTER 72 HOURS 08/28/22 18:00 Blood Culture - Preliminary Blood NO GROWTH AFTER 72 HOURS Discharge Plan Discharge Disposition: [facility] Date of Admission: 08/30/22 10:21 Attending Provider on Discharge: Christen Wiley Primary Care Provider: Deneen Barrientos Condition: Improved Anticipated Discharge Date/Time: 08/29/22 10:00 Discharge Medications: Continued No Known Home Medications Discharge Orders: Discharge Order (Routine); Ordered 08/31/22 Ordered By: Christen Wiley Activity Level: Other Discharge Diet: Other Follow Up Appointments: Deneen Barrientos MD [Primary Care Provider] - 09/08/22 12:45 pm Forms: [employer] Info Instructions Hospital Course: This a 26-year-old female with frequent visits to the ER in 24 hours due to weakness and possible confusion. She is influenza A positive. She initially said she did not have any headache, but later said that she had migraine h eadache that had finally gone away. She had started Tamiflu for influenza, but was unable to complete it because she and her thought it might be causing her to have weakness and confusion. She was also vomiting and unable to keep Tamiflu down. She was admitted for observation and found to have intermittent slurring of speech and confusion. Head CT was reassuring on the 2nd hospital day. Due to the profound weakness, the case was discussed with Dr. Ch from [facility]. Suggested checking CK, CMP and consider an LP and MRI. LP was done on 08/30/2022 and was fairly unremarkable. Symptoms persisted an MRI was done today. It showed moderate supratentorial hydrocephalus with suggestion of transependymal flow along the occipital and frontal horns of the lateral ventricles. Appeared that the overall ventricular dilation and increased compared to the prior CT. There is also inferior displacement of the cerebellar tonsils appearing increased or new since the CT. Neuro surgical consultation was recommended urgently. I spoke with Dr. Tubbs from neurosurgery at [facility] who agreed that the patient should go to [facility] as soon as possible. I also spoke with an senior business architect, Dr. Mejia who accepted this patient in transfer. EMS arrived and got the patient on a stretcher. She suddenly became diaphoretic and flushed at the same time, blood pressure became acutely elevated to 180/115 and her heart rate dropped to 50s. This then resolved. She had several more episodes like this which prompted me to call for air ambulance transport instead. She was then transferred up to [place] via air.
== END 2022-08-31 23:04 | disposition short-term general hospital (02) | DRG 723 ==
LOC: ED 17:22 → MEDSURG 19:04
PROVIDERS: Family Medicine; Admitting Provider Family Medicine; Emergency Provider Family Medicine; PCP Family Medicine; Visit Provider Family Medicine
DX: J10.2 Influenza due to other identified influenza virus with gastrointestinal manifestations (principal); R11.2 Nausea with vomiting, unspecified; R41.82 Altered mental status, unspecified; E86.0 Dehydration; R53.1 Weakness; R47.81 Slurred speech; R79.89 Other specified abnormal findings of blood chemistry; G91.8 Other hydrocephalus; G93.9 Disorder of brain, unspecified; R94.4 Abnormal results of kidney function studies
CPT/HCPCS: 00635; 36415; 70450; 70551; 71045; 72141; 72146; 72148; 76705; 80048; 80053; 80306; 81001; 82077; 82550; 82945; 83605; 83735; 84145; 84157; 84443; 84703; 85025; 86140; 86308; 87040; 87070; 87086; 87158; 87205; 87252; 89051; 97110; 97162; 97165; 97530; 99140; 99284; 99285; A9270; G0378; J1885; J2405; J7030; J7120